=== PATIENT | female | born 1950 | race Caucasian/White ===

== ENCOUNTER → 2017-12-12 | Outpatient (CLI) | payer MEDICARE ==
[~2017-12-12] MED LIST: IOHEXOL 350 MG/ML 150 ML (OMNIPAQUE 350) VIAL IV ONE; NS 250 ML (IVPB) BAG IV ONE; RT-ALBUTEROL SULF 2.5 MG/3 ML PRE-MIX VIAL INH ONE
--- NOTE | 2017-12-12 16:29 | Diagnostic Imaging Report ---
PROCEDURE: CT angiography of the chest with contrast. TECHNIQUE: Multiple contiguous axial images were obtained through the chest after uneventful bolus administration of intravenous contrast. 2D reconstructed CTA MIP acquisitions were also performed. INDICATION: COPD, seasonal allergies, tobaccoism, enzyme deficiency. FINDINGS: There is no intraluminal pulmonary arterial filling defect. There is no PE. The thoracic aorta is patent and nonaneurysmal. There is centrilobular emphysema with heterogeneous air trapping. No bronchiectasis. Few lower lobe air cysts are present thin-walled. No alveolar consolidation. No mass or infiltrate. No effusion or pneumothorax. No lymphadenopathy. There is partial visualization of a patent aortic stent graft device with moderate fatty liver. Pancreas partially visualized nonacute where seen. IMPRESSION: Centrilobular emphysema. Negative for PE or acute aortic pathology. Fatty liver. Dictated by: Dictated on workstation # [id number]
== END ==
LOC: RT 13:39
PROVIDERS: ATTEND Nurse Practitioner Family
DX: J43.2 Centrilobular emphysema (principal); R06.00 Dyspnea, unspecified; E75.6 Lipid storage disorder, unspecified; Z72.0 Tobacco use
CPT/HCPCS: 71275; 94060; 94726; 94729

== ENCOUNTER 2018-11-29 10:55 | Outpatient (RCR) | payer MEDICARE ==
[2018-11-29] MEDS ORDERED: CATHETER FLUSH 10 ML SYR IV PRN (11:30)
[2018-11-29] MEDS ORDERED: REGADENOSON 0.4 MG/5 ML SYR (LEXISCAN) IV ONE ×2 (12:30→12:46)
[2018-11-29 13:18] VITALS: BP 198/109
[2018-11-29 13:20] VITALS: BP 174/96
[2018-12-08] MEDS ORDERED: [UNRECOGNIZED DRUG - OTHER] PO (08:32)
[2018-12-08] MEDS ORDERED: CRAN1CAP9 PO (08:32)
[2018-12-08] MEDS ORDERED: LACT1TAB25 PO (08:32)
[2018-12-08] MEDS ORDERED: FAMO20TA45 PO (08:32)
[2018-12-08] MEDS ORDERED: FLUT12AE4 IH (08:32)
[2018-12-08] MEDS ORDERED: FLUT9.9S NS (08:32)
[2018-12-08] MEDS ORDERED: MULT-1021 PO (08:32)
[2018-12-08] MEDS ORDERED: MAG PO (08:32)
[2018-12-08] MEDS ORDERED: GARL10002 PO (08:32)
[2018-12-08] MEDS ORDERED: LISI-552 PO (08:32)
[2018-12-08] MEDS ORDERED: IBUP-2055 PO (08:32)
[2018-12-08] MEDS ORDERED: CALCIUM PO (08:32)
[2018-12-08] MEDS ORDERED: GUAI1TAB22 PO (08:32)
[2018-12-08] MEDS ORDERED: ZINC PO (08:32)
[2018-12-08] MEDS ORDERED: CHOL10007 PO (08:32)
[2018-12-08] MEDS ORDERED: MONT10TA24 PO (08:32)
[2018-12-08] MEDS ORDERED: LORA10TA7 PO (08:32)
[2018-12-08] MEDS ORDERED: RT-ALBUINH INH (08:32)
[2018-12-08] MEDS ORDERED: INSU100V6 SQ (08:37)
[2018-12-10] MEDS ORDERED: METO-387 PO (10:19)
[2018-12-10] MEDS ORDERED: CEPH250C PO (10:19)
== END 2019-02-27 | disposition home or self-care (01) ==
LOC: CARD 10:55
PROVIDERS: ATTEND Internal Medicine Cardiovascular Disease
DX: I49.5 Sick sinus syndrome (principal); I71.4 Abdominal aortic aneurysm, without rupture; I10 Essential (primary) hypertension; F17.210 Nicotine dependence, cigarettes, uncomplicated; R06.02 Shortness of breath
CPT/HCPCS: 78452; 93017; 93225; 93226; 93306

== ENCOUNTER 2018-12-08 07:35 | Day surgery (SDC) | payer MEDICARE ==
[2018-12-08] VITALS (13 sets, daily range): BP systolic 121–187; BP diastolic 80–119
[~2018-12-08] VITALS: Ht 170.2 cm; Wt 77.3 kg
[2018-12-08] MEDS ORDERED: NS IV 1000 ML 1,000 ML IV ONE (07:42)
[2018-12-08] MEDS ORDERED: BACITRACIN INJECTION 50,000 UNIT, SODIUM CHLORIDE 0.9% IRRIGATIO 500 ML IR ONE ×2 (07:45)
[2018-12-08] MEDS ORDERED: NS IV 1000 ML 1,000 ML ONE ×2 (07:47→12:58)
[2018-12-08] MEDS ORDERED: HEParin (CATH LAB) 1,000 ML IV ONE (07:47)
[2018-12-08] MEDS ORDERED: ceFAZolin INJECTION 1,000 MG ONE (07:51)
[2018-12-08 08:09] LABS: HEMOGLOBIN 15.9 G/DL (11.5-16.0); MEAN PLATELET VOLUME 9.7 FL (7.4-10.4); RED CELL DISTRIBUTION WIDTH 13.1 % (10.0-14.5)
[2018-12-08 08:10] LABS: BILIRUBIN,URINE NEGATIVE (NEGATIVE); CLARITY,URINE CLEAR; COLOR,URINE YELLOW; GLUCOSE, URINE (UA) 2+ (NEGATIVE); KETONES,URINE NEGATIVE (NEGATIVE); LEUKOCYTE ESTERASE ,URINE 3+ (NEGATIVE); NITRITE,URINE NEGATIVE (NEGATIVE); PH,URINE 6 (5-9); PROTEIN,URINE 2+ (NEGATIVE); UROBILINOGEN,URINE NORMAL (NORMAL)
[2018-12-08 08:17] LABS: BACTERIA,URINE MODERATE /HPF; SQUAMOUS EPITHELIAL CELL,UR 25-50 /HPF; WBC,URINE 50-100 /HPF
[2018-12-08 08:20] LABS: PROTHROMBIN TIME PATIENT 13.2 SEC (12.2-14.7)
[2018-12-08] MEDS ORDERED: NS (IVPB) 50 ML ONE (08:24)
[2018-12-08 08:28] LABS: ALBUMIN 4.2 GM/DL (3.2-4.5); BILIRUBIN,TOTAL 0.5 MG/DL (0.1-1.0); CREATININE SERUM 1.03 MG/DL (0.60-1.30); TOTAL PROTEIN 7.9 GM/DL (6.4-8.2)
[2018-12-08] MEDS ORDERED: MEPIVACAINE (CARBOCAINE) 2% 50 ML VIAL IJ ONE (08:30)
[2018-12-08] MEDS ORDERED: CALCIUM PO (08:32)
[2018-12-08] MEDS ORDERED: MULT-1021 PO (08:32)
[2018-12-08] MEDS ORDERED: CRAN1CAP9 PO (08:32)
[2018-12-08] MEDS ORDERED: MONT10TA24 PO (08:32)
[2018-12-08] MEDS ORDERED: RT-ALBUINH INH (08:32)
[2018-12-08] MEDS ORDERED: GARL10002 PO (08:32)
[2018-12-08] MEDS ORDERED: ZINC PO (08:32)
[2018-12-08] MEDS ORDERED: CHOL10007 PO (08:32)
[2018-12-08] MEDS ORDERED: FAMO20TA45 PO (08:32)
[2018-12-08] MEDS ORDERED: LACT1TAB25 PO (08:32)
[2018-12-08] MEDS ORDERED: LORA10TA7 PO (08:32)
[2018-12-08] MEDS ORDERED: FLUT9.9S NS (08:32)
[2018-12-08] MEDS ORDERED: MAG PO (08:32)
[2018-12-08] MEDS ORDERED: LISI-552 PO (08:32)
[2018-12-08] MEDS ORDERED: IBUP-2055 PO (08:32)
[2018-12-08] MEDS ORDERED: [UNRECOGNIZED DRUG - OTHER] PO (08:32)
[2018-12-08] MEDS ORDERED: FLUT12AE4 IH (08:32)
[2018-12-08] MEDS ORDERED: GUAI1TAB22 PO (08:32)
[2018-12-08] MEDS ORDERED: INSU100V6 SQ (08:37)
--- NOTE | 2018-12-08 08:52 | Diagnostic Imaging Report ---
INDICATION: Cardiac disease, pacemaker evaluation FINDINGS: The heart size is within normal limits. There is no vascular congestion. Benign calcified granulomatous residua stable from exam of 2016. No overt failure pattern. No pneumonia, effusion or pneumothorax. Lungs are hyperexpanded consistent with air trapping as a stable chronic finding. IMPRESSION: Stable chronic findings Dictated by: Dictated on workstation # [id number]
[2018-12-08] MEDS ORDERED: methylPREDNISolone 125 MG (Solu-MEDROL) VIAL ONE (08:57)
[2018-12-08] MEDS ORDERED: diphenhydrAMINE 50 MG/ML INJ (BENADRYL) ONE (08:57)
--- NOTE | 2018-12-08 08:59 | NUR ---
SPOKE WITH PT (SHE BROUGHT IN HER HOME MEDS) WELL CALLING [facility] TO COMPLETE THE MED REC. PT WAS ABLE TO VERIFY ALL THERE MEDS AND HOW SHE IS TAKING THEM. THE FOLLOWING DATES WERE GIVEN TO ME FROM [facility] DRU11-23-2018 LANTUS 11-28-2018 LISINOPRIL #30/30DS 12-05-2018 MONTELUKAST #30/30DS Addendum: 12/08/18 at 0949 by ROME ESPARZA campus safety officer SHE GETS ADVAIR A SAMPLE FROM DR. SALGADO OFFICE OTC MEDS: CALCIUM/MAG,ZINC: 3 DAILY VITAMIN D: 2 DAILY CRANBERRY: 1 BID FAMOTIDINE: 1 BID PRN FLONASE NASAL SPRAY: UD GARLIC: 1 BID MUCUS RELIEF DM: 1 TID IBUPROFEN 200M TABS TID PRN PROBIOTIC: 1 HS LORATADINE: 1 DAILY MULTIVITAMIN: 1 DAILY
--- NOTE | 2018-12-08 09:10 | Cardiac Procedure Note-CS/ASA ---
Pre-Procedure Note Pre-Op Procedure Note H&P Reviewed The H&P was reviewed, patient examined and no changes noted. Date H&P Reviewed: Dec 08, 2018 Time H&P Reviewed: 09:10 Conscious Sedation Pre-Proced Time 09:10 ASA Score 3 For ASA 3 and 4: Consider anesthesia and medical clearance. Also, for patients with a history of failed moderate sedation consider anesthesia. Airway Lungs Heart ASA score ASA 1: a normal healthy patient ASA 2: a patient with a mild systemic disease (mid diabetes, controlled hypertension, obesity x ASA 3: a patient with a severe systemic disease that limits activity (angina, COPD, prior Myocardial infarction) ASA 4: a patient with an incapacitating disease that is a constant threat to life (CHF, renal failure) ASA 5: a moribund patient not expected to survive 24 hrs. (ruptured aneurysm) ASA 6: a declared brain- patient whose organs are being harvested. For emergent operations, add the letter E after the classification Mallampati Classification Grade 3 Sedation Plan Analgesia, Amnesia, Plan communicated to team members, Discussed options with patient/fam, Discussed risks with patient/fam The patient is an appropriate candidate to undergo the planned procedure, sedation, and anesthesia. The patient immediately re-assessed prior to indication. LIBRA ROONEY MD Dec 08, 2018 09:10
[2018-12-08] MEDS ORDERED: MIDAZOLAM 5 MG/5 ML (VERSED) VIAL ONE ×2 (09:20→12:08)
[2018-12-08] MEDS ORDERED: fentaNYL INJECTION 100 MCG/2 ML AMP ONE ×5 (09:20→16:28)
[2018-12-08] MEDS ORDERED: MIDAZOLAM 2 MG/2 ML (VERSED) VIAL ONE (11:22)
[2018-12-08] MEDS ORDERED: NEO/POLY/BAC (NEOSPORIN) OINT 15 GM TUBE ONE (12:26)
[2018-12-08] MEDS ORDERED: NS IV 1000 ML 1,000 ML IV SCH (12:32)
--- NOTE | 2018-12-08 12:43 | Permanent Pacemaker Implant ---
Dual Chamber Pacemaker Implant PROCEDURE PHYSICIAN: Libra Dong DUAL CHAMBER PACEMAKER IMPLANTATION: DATE OF PROCEDURE: 12/08/18 ATTENDING PHYSICIAN: Dr. Libra Dong INDICATION: Sinus node dysfunction PREOPERATIVE DIAGNOSIS: sinus node dysfunction POSTOPERATIVE DIAGNOSIS: sinus node dysfunction HISTORY: 68 years old lady with sinus node dysfunction, had a Holter monitor showing severe bradycardia with multiple pauses, has been having dizziness, patient has underlying thoracic aortic aneurysm requiring to be on beta blockers. Dual-chamber permanent pacemaker was recommended. PROCEDURE PERFORMED: 1. Dual-chamber permanent pacemaker implantation. 2. Fluoroscopy. 3. Central venous access. ANESTHESIA: Local anesthesia, conscious sedation. COMPLICATIONS: None. ESTIMATED BLOOD LOSS:20 mL. SPECIMENS: None. ORAL ANTICOAGULATION: None. FLUOROSCOPY TIME: FLUOROSCOPY DOSE: CONTRAST DOSE: PROCEDURE DETAILS: The patient is a 68 female and after all of the patients questions were answered, the patient was brought to the EP Lab. The patient's left chest was prepped and draped in sterile fashion. A 2 inch horizontal incision was made 1 cm below the clavicle and dissection carried down to the pectoralis fascia. Using the modified Seldinger technique and under fluoroscopy guidance, the anterior aspect of the left axillary vein was accessed 2 times. The J wires were secured to the drapes with a mosquito clamp. A 7-Telugu sheath was introduced over one of the J-wires. The RV lead was then inserted. The RV lead was directed across the tricuspid valve to the apical septal portion of the right ventricle. The position was checked in JOAQUÍN and LARRY views. The screw was deployed and the lead connected to the labview programmer. Close sensing and pacing thresholds were obtained. Diaphragmatic pacing was ruled out. The lead was secured with 2-0 silk ties to the underlying muscle and fascia. Next, a 7-Telugu sheath was introduced through the remaining J-wire. An atrial lead was then introduced and guided to the level of the right appendage, multiple attempts with multiple different position has failed to achieve adequate sensing and capture, Dr. Gallardo was consulted and he assisted in positioning the atrial lead. The screw was deployed and the lead was connected to the interrogator. Good sensing and pacing thresholds were obtained. Diaphragmatic pacing was ruled out. The leads were secured with 2-0 silk ties to the underlying muscle and fascia. The leads were connected to the device in a hermetic fashion. The device and leads were placed in the pocket. Aggressive irrigation with saline solution was done. The device was secured to the underlying muscle and fascia with a 2-0 silk tie. interrogation of the device revealed good integrity of all the leads and good connections. The wound was then closed using 2 layers. The first layer was interrupted 2-0 absorbable Vicryl suture. The last layer was a single subcuticular layer with 4- 0 Vicryl suture. Half inch Steri-Strips and a small dressing were then applied to the wound. The patient tolerated the procedure well and was returned to the recovery room in stable condition with stable vital signs. DEVICE INFORMATION: MANOJ DOWNING MRI # [id number] RA LEAD: [id number] RV LEAD: [id number] PER-OPERATIVE DEVICE INTERROGATION: Good sensing and capture IMMEDIATE POSTOPERATIVE DEVICE INTERROGATION: atrial lead, capture at 0.4 ms with 1 V, P-wave 2.6, impedance 556. Device interrogation P wave 2.1 with threshold at 0.75 V was 0.5 ms. Ventricular lead capture is 0.4 with 0.625 V with V wave 20.1 impedance 589. Device interrogation with ventricular lead R-wa ve 16.1, threshold 0.75 at 0.5 PLAN: The patient transferred to the ICU. We will continue with two more doses of IV antibiotics. We will check a chest x-ray and interrogate the device in the morning. The patient will continue on oral antibiotics for 5 days. CONCLUSION: 1. Complex implantation of dual-chamber pacemaker good sensing and capture activity FINAL DIAGNOSIS: Sinus node dysfunction Bradycardia Thoracic aortic aneurysm Hypertension LIBRA DONG MD Dec 08, 2018 12:43
[2018-12-08] MEDS ORDERED: FAMOTIDINE 20 MG PO PRN (12:45)
[2018-12-08] MEDS ORDERED: PATIENT MAY USE OWN MEDS, ALL PO SCH (12:45)
[2018-12-08] MEDS ORDERED: RT-ALBUTEROL SULF 2.5 MG/3 ML PRE-MIX VIAL INH PRN (12:45)
--- NOTE | 2018-12-08 13:11 | NUR ---
PT ARRIVES TO ROOM FROM XRAY POST PACEMAKER PLACEMENT. PT STATES SHE IS SHORT OF BREATH. MONITORS WHERE PLACED ON PT WITH SPO2 IN MID 80'S OXYGEN PLACE ON PT AT 5 LPM NC. PT STILL C/O SHORTNESS OF AIR AND IS USING ACCESSORY MUSCLES TO BREATH. DR ROONEY NOTIFIED OF PT'S S/S AND IS ON HIS WAY TO SEE PT. STAT CHEST XRAY REQUESTED AND PT MADE COMFORTABLE POSSIBLE. DR ROONEY AT BEDSIDE AND ORDERED 40 OF IV LASIX WHICH IS PULLED AND GIVEN AT THIS TIME. XRAY TO ROOM FOR REPEAT CHEST. PNEUMO NOTED ON XRAY BY DR ROONEY AND DR ROWE CONSULTED TO PLACE CHEST TUBE. PT MOVED TO ROOM 9 FOR CLOSER MONITOR AND CHEST TUBE PLACED AND CONFIRMED. 150 MCG OF FENTANYL GIVEN FOR PAIN CONTROL DURING PROCEDURE PER DR ROWE. PT RESTING WITH EYES CLOSED POST TUBE PLACEMENT. WILL CONTINUE TO MONITOR.
[2018-12-08] MEDS ORDERED: FUROSEMIDE 40 MG/4 ML INJ (LASIX) ONE (13:40)
[2018-12-08] MEDS ORDERED: FUROSEMIDE 40 MG/4 ML INJ (LASIX) IVP ONE (13:45)
--- NOTE | 2018-12-08 13:58 | Diagnostic Imaging Report ---
PATIENT HISTORY: SOB. Recent pacemaker placement. TECHNIQUE: Single view of the chest. COMPARISON: Chest radiograph performed at 01:01 p.m. on 12/08/2018. FINDINGS: There has been interval development of a left-sided pneumothorax, measuring approximately 3 cm from the pleura at the left lung base. No evidence of mediastinal shift at this time. There is stable configuration of the left pectoral dual-chamber pacemaker. The lungs are clear. The heart size is unremarkable. IMPRESSION: 1. Interval development of a left-sided pneumothorax. Findings were discussed with JUAN Kulkarni at 01:52 p.m. on 12/08/2018. Dictated by: Dictated on workstation # [id number]
[2018-12-08] MEDS ORDERED: MEPIVACAINE (CARBOCAINE) 2% 20 ML VIAL INJ NR (14:00)
[2018-12-08] MEDS ORDERED: FAMOTIDINE 20 MG (PEPCID) TABLET PO PRN (14:00)
--- NOTE | 2018-12-08 15:29 | Diagnostic Imaging Report ---
CHEST 1 VIEW, AP/PA ONLY. INDICATION: Chest tube placement. COMPARISON: Earlier same day at 01:34 p.m. FINDINGS: There remains a [id number]-fh-[id number] left pneumothorax, with a prominent basilar component. The small-bore left chest tube does not appear to have tip within the pleural space. Slight rightward tracheal position could be due to patient rotation. Stable cardiomediastinal silhouette. IMPRESSION: 1. Persistent [id number] left-sided pneumothorax with the left-sided chest tube tip not within the pleural cavity. Repositioning is recommended. Dictated by: Dictated on workstation # [id number]
[2018-12-08] MEDS: ceFAZolin INJECTION 1,000 MG in WATER (STERILE) FOR INJECTION 10 ML IV SCH ×2 (16:01→20:47)
--- NOTE | 2018-12-08 16:24 | Consultation - Surgery ---
[facility] 12/08/18 1624: History of Present Illness History of Present Illness Patient Consulted On(miguel/time) 12/08/18 16:19 Date Seen by Provider: Dec 08, 2018 Time Seen by Provider: 14:00 History of Present Illness Consult requested by Dr. Dong for left pneumothorax. Patient is 68 yo female that presented for pacemaker placement. Patient was having some shortness of breath and left side discomfort in chest. Nothing making it better nothing making it worse. Chest x-ray showed left sided pneumoth orax. Allergies and Home Medications Allergies Coded Allergies: No Allergy Information Available (Unverified , 12/12/17) Home Medications Albuterol Sulfate 1 Puff Puff, 2 PUFF INH Q4H PRN for SHORTNESS OF BREATH, (Reported) 1 PUFF = 90 MCG Cholecalciferol (Vitamin D3) 1,000 Unit Capsule, 2,000 UNIT PO HS, (Reported) Cranberry Conc/Ascorbic Acid 1 Each Capsule, 1 EACH PO BID, (Reported) Famotidine 20 Mg Tablet, 20 MG PO BID PRN for HEARTBURN, (Reported) Fluticasone Propionate 9.9 Ml [place].susp, 2 SPRAY NS DAILY, (Reported) 2 SPRAYS PER NOSTRIL DAILY X 2 DAYS THEN 1 SPRAY DAILY Fluticasone/Salmeterol 12 Gm Hfa.aer.ad, 2 PUFF IH BID, (Reported) Garlic 1,000 Mg Capsule, 1,000 MG PO BID, (Reported) Guaifenesin/Dextromethorphan 1 Each Tablet, 1 EACH PO TID PRN for CONGESTION, (Reported) Ibuprofen 200 Mg Tablet, 600 MG PO TID PRN for PAIN-MILD, (Reported) Insulin Glargine,Hum.rec.anlog 100 Unit/1 Ml Vial, 18 UNIT SQ HS, (Reported) INJECTING 18 UNITS. BUT PT IS TO INCREASE DOSE TO 21 UNITS IF BS IS STILL NOT STABLE Lactobacillus Acidophilus 1 Each Tablet, 1 EACH PO HS, (Reported) Lisinopril 20 Mg Tablet, 20 MG PO DAILY, (Reported) Loratadine 10 Mg Tablet, 10 MG PO DAILY, (Reported) Montelukast Sodium 10 Mg Tablet, 10 MG PO DAILY, (Reported) Multivits-Min/Iron/FA/Lutein 1 Each Tablet, 1 EACH PO DAILY, (Reported) [Calcium+Mag+Zinc+D] , 3 TAB PO HS, (Reported) Past Meeazrs-Jvvrmv-Ejbchu Hx Patient Social History Alcohol Use: Occasionally Uses Recreational Drug Use: No Smoking Status: Current Everyday Smoker Type Used: Hookah Recent Foreign Travel: No Contact w/Someone Who Travel: No Surgeries Surgeries: Tonsillectomy, Tubal Ligation Respiratory History of Respiratory Disorde: Yes Respiratory Disorders: COPD Cardiovascular History of Cardiac Disorders: Yes Cardiac Disorders: Irregular Heartbeat Neurological History of Neurological Disord: No Genitourinary History of Genitourinary Disor: No Gastrointestinal History of Gastrointestinal Di: Yes Gastrointestinal Disorders: Gastroesophageal Reflux Cancer History of Cancer: No Review of Systems-General Constitutional: No chills, No dizziness, No fever, No weakness Respiratory: No cough; dyspnea on exertion, short of breath, other (Left sided chest pain) Cardiovascular: No palpitations Musculoskeletal: No back pain; joint pain (Shoulder) Psychiatric/Neurological: Denies Headache, Denies Weakness Physical Exam-General Problems Physical Exam Vital Signs Vital Signs - First Documented 12/08/18 08:01 Temp 36.7 Pulse 98 Resp 14 B/P (MAP) 179/119 (139) Pulse Ox 97 O2 Delivery Room Air Capillary Refill : General Appearance: mild distress Respiratory: other (Increased respiratory effort) Cardiovascular: regular rate, rhythm, no JVD Data Review Labs Laboratory Tests 12/08/18 07:58: White Blood Count 8.0, Red Blood Count 5.22, Hemoglobin 15.9, Hematocrit 47, Mean Corpuscular Volume 91, Mean Corpuscular Hemoglobin 31, Mean Corpuscular Hemoglobin Concent 34, Red Cell Distribution Width 13.1, Platelet Count 266, Mean Platelet Volume 9.7, Prothrombin Time 13.2, INR Comment 1.0, Activated Partial Thromboplast Time 31, Urine Color YELLOW, Urine Clarity CLEAR, Urine pH 6, Urine Specific [place] 1.025H, Urine Protein 2+H, Urine Glucose (UA) 2+H, Urine Ketones NEGATIVE, Urine Nitrite NEGATIVE, Urine Bilirubin NEGATIVE, Urine Urobilinogen NORMAL, Urine Leukocyte Esterase 3+H, Urine RBC (Auto) 1+H, Urine RBC 2-5H, Urine WBC 50-100H, Urine Squamous Epithelial Cells 25-50H, Urine Crystals NONE, Urine Bacteria MODERATEH, Urine Casts NONE, Urine Mucus NEGATIVE, Urine Culture Indicated YES, Sodium Level 140, Potassium Level 4.0, Chloride Level 103, Carbon Dioxide Level 23, Anion Gap 14, Blood Urea Nitrogen 11, Creatinine 1.03, Estimat Glomerular Filtration Rate 53, BUN/Creatinine Ratio 11, Glucose Level 224H, Calcium Level 10.0, Corrected Calcium 9.8, Total Bilirubin 0.5, Aspartate Amino Transf (AST/SGOT) 63H, Alanine Aminotransferase (ALT/SGPT) 106H, Alkaline Phosphatase 89, Total Protein 7.9, Albumin 4.2 Radiology Chest X-ray showed a pneumothorax of the left side on the lower lobe. Procedures Thoracostomy tube placement. Assessment/Plan Assessment/Plan Admission Diagonsis Pacemaker placement Assessment/Plan Left sided pneumothorax Shortness of breath Sinus node dysfunction Bradycardia Thoracostomy tube placement followed with chest x-ray. Clinical Quality Measures DVT/VTE Risk/Contraindication: Risk Factor Score Per Nursin RFS Level Per Nursing on Admit: 4+=Very High CHAVEZ SANCHEZ DO 12/08/18 2012: History of Present Illness History of Present Illness History of Present Illness 68 year old female for pacemaker today. Had shortness of breath following procedure and some left sided chest pain. Laying slightly on right side make pain better. Nothing really making it worse. Moderated discomfort. Following procedure patient had a chest x ray demonstrating the left sided pneumothorax. I was consulted to help with management. Patient also notes hematoma left chest where pacemaker pocket present. Allergies and Home Medications Allergies Coded Allergies: No Allergy Information Available (Unverified , 12/12/17) Home Medications Albuterol Sulfate 1 Puff Puff, 2 PUFF INH Q4H PRN for SHORTNESS OF BREATH, (Reported) 1 PUFF = 90 MCG Cholecalciferol (Vitamin D3) 1,000 Unit Capsule, 2,000 UNIT PO HS, (Reported) Cranberry Conc/Ascorbic Acid 1 Each Capsule, 1 EACH PO BID, (Reported) Famotidine 20 Mg Tablet, 20 MG PO BID PRN for HEARTBURN, (Reported) Fluticasone Propionate 9.9 Ml [place].susp, 2 SPRAY NS DAILY, (Reported) 2 SPRAYS PER NOSTRIL DAILY X 2 DAYS THEN 1 SPRAY DAILY Fluticasone/Salmeterol 12 Gm Hfa.aer.ad, 2 PUFF IH BID, (Reported) Garlic 1,000 Mg Capsule, 1,000 MG PO BID, (Reported) Guaifenesin/Dextromethorphan 1 Each Tablet, 1 EACH PO TID PRN for CONGESTION, (Reported) Ibuprofen 200 Mg Tablet, 600 MG PO TID PRN for PAIN-MILD, (Reported) Insulin Glargine,Hum.rec.anlog 100 Unit/1 Ml Vial, 18 UNIT SQ HS, (Reported) INJECTING 18 UNITS. BUT PT IS TO INCREASE DOSE TO 21 UNITS IF BS IS STILL NOT STABLE Lactobacillus Acidophilus 1 Each Tablet, 1 EACH PO HS, (Reported) Lisinopril 20 Mg Tablet, 20 MG PO DAILY, (Reported) Loratadine 10 Mg Tablet, 10 MG PO DAILY, (Reported) Montelukast Sodium 10 Mg Tablet, 10 MG PO DAILY, (Reported) Multivits-Min/Iron/FA/Lutein 1 Each Tablet, 1 EACH PO DAILY, (Reported) [Calcium+Mag+Zinc+D] , 3 TAB PO HS, (Reported) Patient Home Medication List Home Medication List Reviewed: Yes Past Zpmixru-Ngvnxz-Wtminq Hx Patient Social History Type Used: Localmind Surgeries Surgeries: Tonsillectomy, Tubal Ligation Respiratory Respiratory Disorders: COPD Cardiovascular Cardiac Disorders: Irregular Heartbeat Gastrointestinal Gastrointestinal Disorders: Gastroesophageal Reflux Family Medical History Significant Family History: No Pertinent Family Hx Review of Systems-General Constitutional: no symptoms reported EENTM: no symptoms reported Respiratory: see HPI Cardiovascular: see HPI Gastrointestinal: no symptoms reported Genitourinary: no symptoms reported Musculoskeletal: no symptoms reported Skin: no symptoms reported Psychiatric/Neurological: No Symptoms Reported Physical Exam-General Problems Physical Exam General Appearance: mild distress HEENT: PERRL/EOMI Neck: non-tender, normal inspection Respiratory: other (Increased respiratory effort, hematoma left upper chest wall) Cardiovascular: regular rate, rhythm Gastrointestinal: non tender Rectal: deferred Back: normal inspection Extremities: non-tender Neurologic/Psychiatric: alert, normal mood/affect, oriented x 3 Skin: warm/dry Lymphatic: no adenopathy Assessment/Plan Assessment/Plan Assessment/Plan left sided pneumothorax shortness of breath s/p pacemaker placement Chest x ray reviewed and left side pneumothorax present discussed risks and benefits of thoracostomy tube placement patient and her understand and wish to proceed with placement to be placed will place thoravent and obtain chest x ray and will follow Supervisory-Addendum Brief Verification & Attestation Participated in pt care: history, MDM, physical Personally performed: exam, history, MDM, supervision of care Care discussed with: Medical Student Procedures: n/a Results interpretation: Verified all documentation Verification and Attestation of Medical Student E/M Service A medical student performed and documented this service in my presence. I reviewed and verified all information documented by the medical student and made modifications to such information, when appropriate. I personally performed the physical exam and medical decision making. Chavez Sanchez, Dec 08, 2018,20:12 [facility] Dec 08, 2018 16:24 CHAVEZ SANCHEZ DO Dec 08, 2018 20:12
[2018-12-08] MEDS: fentaNYL INJECTION 100 MCG/2 ML AMP IVP PRN ×2 (16:28→20:53)
--- NOTE | 2018-12-08 16:28 | Diagnostic Imaging Report ---
CHEST 1 VIEW, AP/PA ONLY INDICATION: Pacemaker placement. COMPARISON: Earlier same day at 08:11 a.m. FINDINGS: Left pectoral transvenous pacemaker has been placed. The leads appear intact and electrodes overlie the right atrium and right ventricle. Lungs are clear. No pleural effusion or pneumothorax. No abnormal widening of the cardiac silhouette. IMPRESSION: 1. No pneumothorax status post left pectoral transvenous pacemaker placement. Dictated by: Dictated on workstation # [id number]
--- NOTE | 2018-12-08 16:35 | Diagnostic Imaging Report ---
CHEST 1 VIEW, AP/PA ONLY INDICATION: Pneumothorax. COMPARISON: Earlier same day at 2:57 p.m. FINDINGS: The chest tube now has tip within the pleural space. The left-sided pneumothorax has decreased in size but persists with approximately 2.6 cm of left basilar separation. Stable cardiomediastinal silhouette. Stable left pectoral transvenous pacemaker. IMPRESSION: 1. The left-sided pneumothorax has slightly decreased in size with repositioning of the left-sided chest tube. Dictated by: Dictated on workstation # [id number]
[2018-12-08] MEDS ORDERED: KETOROLAC 30 MG/ML VIAL ONE (16:46)
[2018-12-08] MEDS: KETOROLAC 30 MG/ML VIAL IVP PRN (16:49)
--- NOTE | 2018-12-08 17:30 | NUR ---
notified dr ventura of results. pt has ancef ordered
[2018-12-08] MEDS: RT-ADVAIR HFA 115/21 MCG PER PUFF IH SCH (19:18)
[2018-12-08] MEDS ORDERED: NON-FORMULARY MEDICATION 1 EA EA (Insulin Glargine,Hum.rec.anlog (Lantus) 18 UNIT) SQ SCH (21:00)
--- NOTE | 2018-12-08 21:13 | OPERATIVE REPORT ---
DATE OF SERVICE: 12/08/2018 PREOPERATIVE DIAGNOSIS: Left pneumothorax. POSTOPERATIVE DIAGNOSIS: Left pneumothorax. PROCEDURE PERFORMED: Left thoracostomy tube placement using Thora-Vent. SURGEON: Abdirahman Sanchez DO ANESTHESIA: Local. ESTIMATED BLOOD LOSS: Minimal. COMPLICATIONS: None. INDICATIONS: The patient is a 68-year-old female undergoing pacemaker placement, found to have a left-sided pneumothorax, having shortness of breath. She was discussed risks and benefits of having a thoracostomy tube placement. She understands and wishes to proceed. Consent was signed in the chart. DESCRIPTION OF PROCEDURE: The patient was prepped and draped in sterile fashion, left anterior axillary line at the nipple line. Local anesthetic was infiltrated and the needle was inserted towards the chest until air was able to be withdrawn and local anesthetic was infiltrated through the chest wall. An 11-blade scalpel was used to make a skin incision and catheter and trocar were advanced through the chest wall until the pleural cavity was entered and the catheter was then advanced. The Thora-Vent was then secured in the usual fashion. Prior to adhering the valve was functioning after securing the Thora-Vent, the valve was no longer functioning. Chest x-ray was performed demonstrating the thoracostomy tube in the subcutaneous tissue and not within the chest cavity. This was removed and a new Thora-Vent was then inserted through the incision into the chest cavity and secured in the usual fashion. The valve was then functioning without difficulty, chest x-ray confirming the thoracostomy tube within the chest cavity. The patient tolerated procedure well without any complications. Job ID: [id number] DocumentID: [id number] Dictated Date: 12/08/2018 16:58:22 Envelope Maker Date: 12/08/2018 21:12:25 Dictated By: ABDIRAHMAN SANCHEZ DO
[2018-12-09] VITALS (11 sets, daily range): BP systolic 122–161; BP diastolic 55–99
[2018-12-09] MEDS: KETOROLAC 30 MG/ML VIAL IVP PRN ×3 (02:22→17:48)
[2018-12-09 03:31] LABS: BASOPHILS % (AUTO) 0 % (0-10); EOSINOPHILS % (AUTO) 0 % (0-10); HEMATOCRIT 39 % (35-52); HEMOGLOBIN 13.1 G/DL (11.5-16.0); LYMPHOCYTES # (AUTO) 1.6 X 10^3 (1.0-4.0); LYMPHOCYTES % (AUTO) 15 % (12-44); MEAN CORPUSCULAR HEMOGLOBIN 31 PG (25-34); MEAN CORPUSCULAR HGB CONC 33 G/DL (32-36); MEAN CORPUSCULAR VOLUME 92 FL (80-99); MEAN PLATELET VOLUME 10.1 FL (7.4-10.4); MONOCYTES # (AUTO) 1.4 X 10^3 (0.0-1.0); MONOCYTES % (AUTO) 13 % (0-12); NEUTROPHILS # (AUTO) 7.7 X 10^3 (1.8-7.8); NEUTROPHILS % (AUTO) 72 % (42-75); PLATELET COUNT 190 10^3/uL (130-400); RED CELL DISTRIBUTION WIDTH 12.3 % (10.0-14.5); WHITE BLOOD COUNT 10.7 10^3/uL (4.3-11.0)
[2018-12-09 03:48] LABS: BUN/CREATININE RATIO 25; CALCIUM 8.7 MG/DL (8.5-10.1); CARBON DIOXIDE 25 MMOL/L (21-32); CHLORIDE 101 MMOL/L (98-107); CREATININE SERUM 0.91 MG/DL (0.60-1.30); GFR ESTIMATED > 60; GLUCOSE 292 MG/DL (70-105); MAGNESIUM 1.8 MG/DL (1.6-2.4); PHOSPHORUS 3.2 MG/DL (2.3-4.7); POTASSIUM 4.8 MMOL/L (3.6-5.0); SODIUM 133 MMOL/L (135-145)
[2018-12-09] MEDS: RT-ADVAIR HFA 115/21 MCG PER PUFF IH SCH ×2 (06:33→19:07)
[2018-12-09] MEDS: ceFAZolin INJECTION 1,000 MG in WATER (STERILE) FOR INJECTION 10 ML IV SCH (07:24)
[2018-12-09] MEDS: MULTIVIT W/MINERALS TAB (THERAGRAN M) PO SCH (07:24)
--- NOTE | 2018-12-09 07:31 | Diagnostic Imaging Report ---
INDICATION: Dyspnea, follow-up chest tube. COMPARISON: 12/08/2018. DISCUSSION: Single portable upright view of the chest was obtained. Small-bore left chest tube is again projected over the left lower lung. No pneumothorax. Probable atelectasis noted within the left lung base. There has been good reexpansion of the left lung. Normal heart size. The right lung is well aerated. Elevated right hemidiaphragm. Left-sided pacemaker is stable. IMPRESSION: 1. Reexpansion of the left lung with no residual pneumothorax identified. Dictated by: Dictated on workstation # [id number]
--- NOTE | 2018-12-09 07:49 | Cardiology History & Physical ---
HPI-Cardiology Cardiology Consultation Date of Consultation 12/09/18 Date of Admission Time Seen by Provider: 07:47 Indication: Sinus node dysfunction HPI 68 years old lady with history of sinus node dysfunction, having episodes of palpitation, had a Holter monitor which showed multiple episodes of bradycardia, having episodes of dizziness and lightheadedness. No full syncope was reported, she was scheduled as an outpatient for dual-chamber pacemaker implantation, procedure was complex and complicated by pneumothorax. Had chest tube, recovering well. PMH-Cardiology Respiratory Yes Cardiovascular Yes Neurological No Genitourinary No Gastrointestinal Yes Gastroesophageal Reflux Cancer No Other PMHx Discussed below Social History Patient Social History Marrital Status: Employed/Student: employed Alcohol Use: Occasionally Uses Recreational Drug Use: No Recent Foreign Travel: No Contact w/other who traveled: No Family Hx Significant Family History: No Pertinent Family Hx Other Noncontributory to her current condition ROS-Cardiology Review of Systems General: No Chills, No Night Sweats, No Fatigue, No Malaise, No Appetite; Other (Dizziness) HEENT: No Head Aches, No Visual Changes, No Eye Pain, No Ear Pain, No Dysphasia, No Sinus Congestion, No Post Nasal Drip, No Sore Throat Pulmonary: No Dyspnea, No Cough, No Pleuritic Chest Pain Cardiovascular: Chest Pain; No: Palpitations, Orthopnea, Paroxysmal Noc. Dyspnea, Edema, Lt Headedness Gastrointestinal: No: Nausea, Vomiting, Abdominal Pain, Diarrhea, Constipation, Melena, Hematochezia Genitourinary: No Dysuria, No Frequency, No Incontinence, No Hematuria, No Re tention Musculoskeletal: No: neck pain, shoulder pain, arm pain, back pain, hand pain, leg pain, foot pain Neurological: No: Weakness, Numbness, Incoordination, Change in speech, Confusion, Seizures Home Medications & Allergies Allergies: Coded Allergies: No Allergy Information Available (Unverified , 12/12/17) Home Medication List Reviewed: Yes Exam-Cardiology Vital Signs Vital Signs Date Time Temp Pulse Resp B/P (MAP) Pulse Ox O2 Delivery O2 Flow Rate FiO2 12/09/18 06:33 100 Nasal Cannula 4.00 12/09/18 06:00 70 13 152/99 (116) 12/09/18 04:00 37.0 Exam General Appearance: Alert, Oriented X3, Cooperative, No Acute Distress HEENT: Atraumatic, PERRLA Respiratory: Clear to Auscultation, Normal Air Movement Cardiovascular: Regular Rate, Normal S1, Normal S2, No Murmurs Abdominal: Normal Bowel Sounds, Soft, No Tenderness, No Hepatosplenomegaly, No Masses Extremities: No Clubbing, No Cyanosis, No Edema, Normal Pulses, No Tenderness/Swelling Skin: No Rashes, No Breakdown, No Significant Lesion Neuro: Normal Gait, Normal Speech, Strength at 5/5 X4 Ext, Normal Tone, Sensation Intact Psych/Mental Status: Mental Status NL, Mood NL Results Labs Labs Laboratory Tests 12/08/18 07:58: White Blood Count 8.0, Red Blood Count 5.22, Hemoglobin 15.9, Hematocrit 47, Mean Corpuscular Volume 91, Mean Corpuscular Hemoglobin 31, Mean Corpuscular Hemoglobin Concent 34, Red Cell Distribution Width 13.1, Platelet Count 266, Mean Platelet Volume 9.7, Prothrombin Time 13.2, INR Comment 1.0, Activated Partial Thromboplast Time 31, Urine Color YELLOW, Urine Clarity CLEAR, Urine pH 6, Urine Specific [place] 1.025H, Urine Protein 2+H, Urine Glucose (UA) 2+H, Urine Ketones NEGATIVE, Urine Nitrite NEGATIVE, Urine Bilirubin NEGATIVE, Urine Urobilinogen NORMAL, Urine Leukocyte Esterase 3+H, Urine RBC (Auto) 1+H, Urine RBC 2-5H, Urine WBC 50-100H, Urine Squamous Epithelial Cells 25-50H, Urine Crystals NONE, Urine Bacteria MODERATEH, Urine Casts NONE, Urine Mucus NEGATIVE, Urine Culture Indicated YES, Sodium Level 140, Potassium Level 4.0, Chloride Level 103, Carbon Dioxide Level 23, Anion Gap 14, Blood Urea Nitrogen 11, Creatinine 1.03, Estimat Glomerular Filtration Rate 53, BUN/Creatinine Ratio 11, Glucose Level 224H, Calcium Level 10.0, Corrected Calcium 9.8, Total Bilirubin 0.5, Aspartate Amino Transf (AST/SGOT) 63H, Alanine Aminotransferase (ALT/SGPT) 106H, Alkaline Phosphatase 89, Total Protein 7.9, Albumin 4.2 12/09/18 03:05: White Blood Count 10.7, Red Blood Count 4.30L, Hemoglobin 13.1, Hematocrit 39, Mean Corpuscular Volume 92, Mean Corpuscular Hemoglobin 31, Mean Corpuscular Hemoglobin Concent 33, Red Cell Distribution Width 12.3, Platelet Count 190, Mean Platelet Volume 10.1, Sodium Level 133L, Potassium Level 4.8, Chloride Level 101, Carbon Dioxide Level 25, Anion Gap 7, Blood Urea Nitrogen 23H, Cre atinine 0.91, Estimat Glomerular Filtration Rate > 60, BUN/Creatinine Ratio 25, Glucose Level 292H, Calcium Level 8.7, Neutrophils (%) (Auto) 72, Lymphocytes (%) (Auto) 15, Monocytes (%) (Auto) 13H, Eosinophils (%) (Auto) 0, Basophils (%) (Auto) 0, Neutrophils # (Auto) 7.7, Lymphocytes # (Auto) 1.6, Monocytes # (Auto) 1.4H, Eosinophils # (Auto) 0.0, Basophils # (Auto) 0.0, Phosphorus Level 3.2, Magnesium Level 1.8 A/P-Cardiology Admission Diagnosis Sinus node dysfunction Dual-chamber pacemaker Pneumothorax Urinary tract infection Admission Status: Inpatient Order (span 2 midnights) Reason for Inpatient Admission: Pneumothorax Assessment/Plan Sinus bradycardia, sinus node dysfunction, worsened by beta blockers, has underlying abdominal aortic aneurysm which require aggressive treatment, stress test and 2-D echocardiogram done November 2018 revealed no ischemia or infarct normal EF. Patient underwent 48 hour Holter monitor after being off of her atenolol for 24 hours revealing sinus node dysfunction with sinus exit block with pauses up to 2.5 seconds. Multiple PVCs, PACs, runs of PAT alternating with sinus bradycardia with heart rate in the 40s. Patient has been symptomatic, had a dual-chamber pacemaker implanted complicated by pneumothorax, had chest tube placed. Recovering well. Status post dual-chamber pacemaker implantation, complex procedure, required multiple technique to achieve adequate sensing and capture activity in the atrial lead, have a hematoma at the pacemaker site and small pneumothorax, had a chest tube placed and recovering well. Urinary tract infection noted incidentally, receiving antibiotic Allergy to lidocaine Palpitations, occurring more frequently. Noted to have multiple episodes of PV Cs, PACs and short runs of paroxysmal atrial tachycardia as discussed above. Started on low-dose beta blockers Hypertension, labile, started on beta blockers. Continue to monitor Hyperlipidemia, controlled, reevaluate again in 6 months Abdominal aortic aneurysm had a stent placed in [address] Delacruz in [place] [facility]. Has been followed in [place] [facility], had a CT scan done in [place], I'll try to obtain copy of the results Nonobstructive carotid artery stenosis per carotid duplex done November 2018. Continue to monitor. COPD, followed by Dr. Zenaida Good, educated on smoking cessation Dizziness and lightheadedness probably due to bradycardia. Clinical Quality Measures DVT/VTE Risk/Contraindication: Risk Factor Score Per Nursin RFS Level Per Nursing on Admit: 4+=Very High LIBRA ROONEY MD Dec 09, 2018 07:49
[2018-12-09] MEDS: LORATADINE (CLARITIN) 10 MG TAB PO SCH (08:40)
[2018-12-09] MEDS: lisINopril 20 MG (PRINIVIL) TABLET PO SCH (08:40)
[2018-12-09] MEDS ORDERED: NON-FORMULARY MEDICATION 1 EA EA (Fluticasone Propionate (Flonase Allergy Relief) 2 SPRAY) NS SCH (09:00)
[2018-12-09] MEDS ORDERED: NON-FORMULARY MEDICATION 1 EA EA (Multivits-Min/Iron/FA/Lutein (Centrum Silver Women Table PO SCH (09:00)
[2018-12-09] MEDS: CEPHALEXIN 250 MG (KEFLEX) CAP PO SCH ×4 (09:03→20:22)
--- NOTE | 2018-12-09 10:49 | Progress Note - Surgery ---
KATINA STROUD,MED STUDENT 12/09/18 1049: Subjective Date Seen by a Provider: Dec 09, 2018 Time Seen by a Provider: 08:40 Subjective/Events-last exam Patient seen and examined. She is feeling better today. Review of Systems General: No Chills Pulmonary: Dyspnea (improved); No Cough Cardiovascular: No: Chest Pain Musculoskeletal: shoulder pain Neurological: No: Weakness, Confusion Objective Exam Vital Signs Date Time Temp Pulse Resp B/P (MAP) Pulse Ox O2 Delivery O2 Flow Rate FiO2 12/09/18 08:00 36.4 77 13 151/95 (113) 97 Nasal Cannula 4.00 12/09/18 07:00 75 12/09/18 06:33 100 Nasal Cannula 4.00 12/09/18 06:00 70 13 152/99 (116) 98 Nasal Cannula 4.00 12/09/18 05:00 71 15 139/95 (110) 98 Nasal Cannula 4.00 12/09/18 04:00 73 18 146/86 (106) 98 Nasal Cannula 4.00 12/09/18 04:00 93 Nasal Cannula 4.00 12/09/18 04:00 37.0 12/09/18 03:00 72 17 141/93 (109) 97 Nasal Cannula 4.00 12/09/18 02:00 76 21 161/92 (115) 98 Nasal Cannula 4.00 12/09/18 01:00 77 17 152/87 (108) 99 Nasal Cannula 4.00 12/09/18 01:00 74 12/09/18 00:00 36.7 12/09/18 00:00 81 17 159/91 (113) 98 Nasal Cannula 4.00 12/09/18 00:00 94 Nasal Cannula 4.00 12/08/18 23:00 80 16 139/81 (100) 92 Nasal Cannula 4.00 12/08/18 22:00 87 15 131/90 (104) 96 Nasal Cannula 4.00 12/08/18 21:00 96 Nasal Cannula 4.00 12/08/18 21:00 92 Nasal Cannula 4.00 12/08/18 21:00 91 17 137/96 (110) 96 Nasal Cannula 4.00 12/08/18 20:12 36.5 12/08/18 20:00 91 15 156/94 (114) 95 Nasal Cannula 4.00 12/08/18 19:18 96 Nasal Cannula 4.00 12/08/18 19:00 92 12/08/18 19:00 92 14 121/80 (94) 96 Nasal Cannula 4.00 12/08/18 18:00 92 12 146/92 (110) 98 Nasal Cannula 4.00 12/08/18 17:00 93 29 148/112 (124) 97 Nasal Cannula 4.00 12/08/18 16:43 35.8 12/08/18 16:00 95 Nasal Cannula 4.00 12/08/18 16:00 69 15 144/103 (117) 93 Nasal Cannula 4.00 12/08/18 15:30 147/93 (111) Nasal Cannula 4.00 12/08/18 15:00 121/96 (104) Nasal Cannula 4.00 12/08/18 14:30 96 187/106 (133) Nasal Cannula 4.00 12/08/18 14:22 95 Nasal Cannula 5.00 12/08/18 14:15 94 12/08/18 14:00 78 23 95 Nasal Cannula 4.00 12/08/18 13:45 71 30 94 Nasal Cannula 4.00 12/08/18 13:30 63 152/88 (109) Nasal Cannula 4.00 I & O 12/09/18 07:00 Intake Total 950 ml Output Total 1800 ml Balance -850 ml Capillary Refill : General Appearance: No Apparent Distress, WD/WN HEENT: PERRL/EOMI, Moist Mucous Membranes Respiratory: Lungs Clear, Normal Breath Sounds, No Respiratory Distress; No Wheezing; Other (hematoma left upper chest near pacemaker, thoravent left mid axillary line at nipple line) Cardiovascular: Regular Rate, Rhythm, No Murmur Peripheral Pulses: 2+ Radial Pulses (R), 2+ Radial Pulses (L) Gastrointestinal: non tender, soft Neurologic/Psychiatric: Alert, Oriented x3 Skin: Other (see respiratory) Results Lab Laboratory Tests 12/09/18 03:05: White Blood Count 10.7, Red Blood Count 4.30L, Hemoglobin 13.1, Hematocrit 39, Mean Corpuscular Volume 92, Mean Corpuscular Hemoglobin 31, Mean Corpuscular Hemoglobin Concent 33, Red Cell Distribution Width 12.3, Platelet Count 190, Mean Platelet Volume 10.1, Neutrophils (%) (Auto) 72, Lymphocytes (%) (Auto) 15, Monocytes (%) (Auto) 13H, Eosinophils (%) (Auto) 0, Basophils (%) (Auto) 0, Neutrophils # (Auto) 7.7, Lymphocytes # (Auto) 1.6, Monocytes # (Auto) 1.4H, Eosinophils # (Auto) 0.0, Basophils # (Auto) 0.0, Sodium Level 133L, Potassium Level 4.8, Chloride Level 101, Carbon Dioxide Level 25, Anion Gap 7, Blood Urea Nitrogen 23H, Creatinine 0.91, Estimat Glomerular Filtration Rate > 60, BUN/Creatinine Ratio 25, Glucose Level 292H, Calcium Level 8.7, Phosphorus Level 3.2, Magnesium Level 1.8 Microbiology 12/08/18 Urine Culture - Final, Complete 3 or more isolates Assessment/Plan Assessment/Plan Assessment/Plan Left pneumothorax Shortness of breath: resolved S/P Dual chamber Pacemaker Placement CXR showed reexpansion of left lung with no residual pneumothorax. Continue pain control as needed. Will leave thoravent in place until pneumothorax sealed for 24 hours. Repeat CXR tomorrow morning to reevaluate. Clinical Quality Measures DVT/VTE Risk/Contraindication: Risk Factor Score Per Nursin RFS Level Per Nursing on Admit: 4+=Very High ABDIRAHMAN SANCHEZ DO 12/09/18 1121: Subjective Subjective/Events-last exam Patient breathing easier today. Not as much discomfort. Thoravent in place. repeat chest x ray has reexpansion of the left lung. Objective Exam General Appearance: No Apparent Distress HEENT: PERRL/EOMI Respiratory: No Accessory Muscle Use, No Respiratory Distress, Other (hematoma left upper chest near pacemaker, thoravent left mid axillary line at nipple line functioning) Cardiovascular: Regular Rate, Rhythm Gastrointestinal: non tender, soft Extremity: Non Tender Neurologic/Psychiatric: Alert, Oriented x3 Skin: Warm/Dry, Other (hematoma left chest) Lymphatic: No Adenopathy Assessment/Plan Assessment/Plan Assessment/Plan Left pneumothorax Shortness of breath: resolved S/P Dual chamber Pacemaker Placement repeat chest x ray in am can be discharged home with thoravent with close follow up when okay from medical perspective. Supervisory-Addendum Brief Verification & Attestation Participated in pt care: history, MDM, physical Personally performed: exam, history, MDM, supervision of care Care discussed with: Medical Student Procedures: n/a Results interpretation: Verified all documentation Verification and Attestation of Medical Student E/M Service A medical student performed and documented this service in my presence. I reviewed and verified all information documented by the medical student and made modifications to such information, when appropriate. I personally performed the physical exam and medical decision making. Abdirahman Sanchez, Dec 09, 2018,11:20 KATINA STROUD MED STUDENT Dec 09, 2018 10:49 ABDIRAHMAN SANCHEZ DO Dec 09, 2018 11:21
--- NOTE | 2018-12-09 11:01 | NUR ---
TRANSFERRED FROM ICU PER W/C. AT BEDSIDE. LARGE AMT PURPLISH BRUISING TO LEFT UPPER AND MIDDLE CHEST AND MOD. AMT SWELLING. DRESSING TO LEFT CHEST PACEMAKER IN PLACE WITH GAUZE AND OP-SITE IN PLACE. HEART RATE REGULAR. SKIN W/D. RESP. REGULAR. HOB UP . CHEERFUL AND TALKATIVE. NO EDEMA IN LOWER EXT. SMALL CHEST TUBE TO LEFT MIDDLE LATERAL CHEST WITH SMALL AMT PINKISH DRAINAGE NOTED. AREA WITH DRESSING D/I AND REDNESS OR SWELLING NOTED.
[2018-12-09] MEDS ORDERED: POLYETHYLENE GLYCOL 17 GM (MIRALAX) PACK PO SCH (21:00)
[2018-12-10] VITALS: BP 148/88
[2018-12-10 04:00] VITALS: BP 150/80
[2018-12-10 04:56] LABS: BASOPHILS % (AUTO) 0 % (0-10); EOSINOPHILS # (AUTO) 0.3 10^3/uL (0.0-0.3); EOSINOPHILS % (AUTO) 4 % (0-10); HEMATOCRIT 39 % (35-52); HEMOGLOBIN 12.9 G/DL (11.5-16.0); LYMPHOCYTES # (AUTO) 1.9 X 10^3 (1.0-4.0); LYMPHOCYTES % (AUTO) 27 % (12-44); MEAN CORPUSCULAR HEMOGLOBIN 30 PG (25-34); MEAN CORPUSCULAR HGB CONC 34 G/DL (32-36); MEAN CORPUSCULAR VOLUME 90 FL (80-99); MEAN PLATELET VOLUME 10.1 FL (7.4-10.4); MONOCYTES # (AUTO) 0.8 X 10^3 (0.0-1.0); MONOCYTES % (AUTO) 11 % (0-12); NEUTROPHILS % (AUTO) 58 % (42-75); PLATELET COUNT 176 10^3/uL (130-400); RED CELL DISTRIBUTION WIDTH 12.4 % (10.0-14.5); WHITE BLOOD COUNT 6.9 10^3/uL (4.3-11.0)
[2018-12-10 05:17] LABS: BUN/CREATININE RATIO 22; CARBON DIOXIDE 26 MMOL/L (21-32); CHLORIDE 103 MMOL/L (98-107); CREATININE SERUM 0.87 MG/DL (0.60-1.30); GFR ESTIMATED > 60; GLUCOSE 226 MG/DL (70-105); MAGNESIUM 1.8 MG/DL (1.6-2.4); PHOSPHORUS 2.2 MG/DL (2.3-4.7); POTASSIUM 4.4 MMOL/L (3.6-5.0); SODIUM 138 MMOL/L (135-145)
[2018-12-10] MEDS: MULTIVIT W/MINERALS TAB (THERAGRAN M) PO SCH (06:03)
[2018-12-10] MEDS: RT-ADVAIR HFA 115/21 MCG PER PUFF IH SCH (06:58)
[2018-12-10 08:00] VITALS: BP 169/94
[2018-12-10] MEDS: LORATADINE (CLARITIN) 10 MG TAB PO SCH (08:18)
[2018-12-10] MEDS: KETOROLAC 30 MG/ML VIAL IVP PRN (08:18)
[2018-12-10] MEDS: CEPHALEXIN 250 MG (KEFLEX) CAP PO SCH (08:23)
[2018-12-10] MEDS: lisINopril 20 MG (PRINIVIL) TABLET PO SCH (08:23)
[2018-12-10] MEDS ORDERED: FLUTICASONE NASAL SPRAY (FLONASE) 16 GM BTL NS SCH (09:00)
[2018-12-10] MEDS ORDERED: POLYETHYLENE GLYCOL 17 GM (MIRALAX) PACK PO SCH (09:15)
[2018-12-10] MEDS ORDERED: CEPH250C PO (10:19)
[2018-12-10] MEDS ORDERED: METO-387 PO (10:19)
--- NOTE | 2018-12-10 10:23 | Cardiology Discharge Summary ---
Discharge Summary Hospital Course Problems Reviewed?: Yes Hospital Course Date of Admission: Admission Diagnosis : Family Physician/Provider: Karine Singleton MD Date of Discharge: 12/10/18 Discharge Diagnosis: [ Sinus node dysfunction Cardiac Pacemaker Palpitation Hypertension Abdominal aortic aneurysm] Hospital Course: [ Sinus bradycardia, sinus node dysfunction, worsened by beta blockers, has underlying abdominal aortic aneurysm which require aggressive treatment, stress test and 2-D echocardiogram done November 2018 revealed no ischemia or infarct normal EF. Patient underwent 48 hour Holter monitor after being off of her atenolol for 24 hours revealing sinus node dysfunction with sinus exit block with pauses up to 2.5 seconds. Multiple PVCs, PACs, runs of PAT alternating with sinus bradycardia with heart rate in the 40s. Patient has been symptomatic, had a dual-chamber pacemaker implanted complicated by pneumothorax, had chest tube placed. Recovering well. will follow with Dr Sanchez as an outpatient Status post dual-chamber pacemaker implantation, complex procedure, required multiple technique to achieve adequate sensing and capture activity in the atrial lead, have a hematoma at the pacemaker site and small pneumothorax, had a chest tube placed and recovering well. Urinary tract infection noted incidentally, receiving antibiotic Allergy to lidocaine Palpitations, occurring more frequently. Noted to have multiple episodes of PVCs, PACs and short runs of paroxysmal atrial tachycardia as discussed above. Started on low-dose beta blockers Hypertension, labile, started on beta blockers. Continue to monitor Hyperlipidemia, controlled, reevaluate again in 6 months Abdominal aortic aneurysm had a stent placed in [address] Delacruz in [facility]. Has been followed in [facility], had a CT scan done in [place], I'll try to obtain copy of the results Nonobstructive carotid artery stenosis per carotid duplex done November 2018. Continue to monitor. COPD, followed by Dr. Zenaida Good, educated on smoking cessation Dizziness and lightheadedness probably due to bradycardia.] Labs and Pending Lab Test: Laboratory Tests 12/10/18 04:23: White Blood Count 6.9, Red Blood Count 4.26L, Hemoglobin 12.9, Hematocrit 39, Mean Corpuscular Volume 90, Mean Corpuscular Hemoglobin 30, Mean Corpuscular Hemoglobin Concent 34, Red Cell Distribution Width 12.4, Platelet Count 176, Mean Platelet Volume 10.1, Neutrophils (%) (Auto) 58, Lymphocytes (%) (Auto) 27, Monocytes (%) (Auto) 11, Eosinophils (%) (Auto) 4, Basophils (%) (Auto) 0, Neutrophils # (Auto) 4.0, Lymphocytes # (Auto) 1.9, Monocytes # (Auto) 0.8, Eosinophils # (Auto) 0.3, Basophils # (Auto) 0.0 12/10/18 04:35: Sodium Level 138, Potassium Level 4.4, Chloride Level 103, Carbon Dioxide Level 26, Anion Gap 9, Blood Urea Nitrogen 19H, Creatinine 0.87, Estimat Glomerular Filtration Rate > 60, BUN/Creatinine Ratio 22, Glucose Level 226H, Calcium Level 9.0, Phosphorus Level 2.2L, Magnesium Level 1.8 Microbiology 12/08/18 MRSA Screen - Final, Complete MRSA not isolated 12/08/18 Urine Culture - Final, Complete 3 or more isolates Home Meds Active Metoprolol Succinate 25 Mg Tab.er.24h 25 Mg PO DAILY Cephalexin 250 Mg Capsule 250 Mg PO QID Reported Lantus (Insulin Glargine,Hum.rec.anlog) 100 Unit/1 Ml Vial 18 Unit SQ HS INJECTING 18 UNITS. BUT PT IS TO INCREASE DOSE TO 21 UNITS IF BS IS STILL NOT STABLE Ibuprofen 200 Mg Tablet 600 Mg PO TID PRN Loratadine 10 Mg Tablet 10 Mg PO DAILY Probiotic Acidophilus (Lactobacillus Acidophilus) 1 Each Tablet 1 Each PO HS [Calcium+Mag+Zinc+D] 3 Tab PO HS Pepcid AC (Famotidine) 20 Mg Tablet 20 Mg PO BID PRN Mucus Relief Dm Tablet (Guaifenesin/Dextromethorphan) 1 Each Tablet 1 Each PO TID PRN Cranberry Concentrate Softgel (Cranberry Conc/Ascorbic Acid) 1 Each Capsule 1 Each PO BID Vitamin D3 (Cholecalciferol (Vitamin D3)) 1,000 Unit Capsule 2,000 Unit PO HS Garlic 1,000 Mg Capsule 1,000 Mg PO BID Centrum Silver Women Tablet (Multivits-Min/Iron/FA/Lutein) 1 Each Tablet 1 Each PO DAILY Flonase Allergy Relief (Fluticasone Propionate) 9.9 Ml [place].susp 2 [place] NS DAILY 2 SPRAYS PER NOSTRIL DAILY X 2 DAYS THEN 1 SPRAY DAILY Ventolin Hfa (Albuterol Sulfate) 1 Puff Puff 2 Puff INH Q4H PRN 1 PUFF = 90 MCG Advair Hfa 115-21 Mcg Inhaler (Fluticasone/Salmeterol) 12 Gm Hfa.aer.ad 2 Puff IH BID Montelukast Sodium 10 Mg Tablet 10 Mg PO DAILY Lisinopril 20 Mg Tablet 20 Mg PO DAILY Assessment/Pt DC Instructions Arrangement for follow-up with Dr. Sanchez on Tuesday and Dr. Dong on Discharge Diet: No Restrictions Orders-Post D/C & Referrals Pneu Vac Indicated: Yes Discharge Physical Examination Allergies: Coded Allergies: lidocaine (Unverified Allergy, Intermediate, Shortness of Breath, 12/09/18) lanolin (Unverified Allergy, Unknown, 12/09/18) latex (Unverified Allergy, Unknown, 12/09/18) orange (Unverified Allergy, Unknown, 12/09/18) General Appearance: No Apparent Distress, WD/WN HEENT: PERRL/EOMI, TMs Normal, Normal ENT Inspection, Pharynx Normal Respiratory: Chest Non Tender, No Accessory Muscle Use, No Respiratory Distress, Accessory Muscle Use, Crackles, Other (hematoma over pacer site) Cardiovascular: Regular Rate, Rhythm, No Edema, No Gallop, No JVD, No Murmur Gastrointestinal: Normal Bowel Sounds, No Organomegaly, No Pulsatile Mass, Non Tender Extremity: Normal Capillary Refill, Normal Inspection, Normal Range of Motion, Non Tender, No Pedal Edema Skin: Normal Color, Warm/Dry Neurologic/Psychiatric: Alert, Oriented x3, No Motor/Sensory Deficits, Normal Mood/Affect, test operator II-XII Norm as Tested Clinical Quality Measures DVT/VTE Risk/Contraindication: Risk Factor Score Per Nursin RFS Level Per Nursing on Admit: 4+=Very High LIBRA DONG MD Dec 10, 2018 10:23
--- NOTE | 2018-12-10 10:42 | Progress Note - Surgery ---
KATINA STROUD,MED STUDENT 12/10/18 1042: Subjective Date Seen by a Provider: Dec 10, 2018 Time Seen by a Provider: 09:45 Subjective/Events-last exam Patient is a 68 yo female that was consulted for a left pneumothorax. Thoravent was placed in the left chest which showed lung reexpansion on CXR. She states it is easier to breath and there is not as much discomfort at this time. Review of Systems General: No Chills, No Night Sweats HEENT: No Head Aches, No Visual Changes Pulmonary: No Dyspnea, No Cough Cardiovascular: No: Lt Headedness Gastrointestinal: Constipation; No: Nausea, Vomiting, Abdominal Pain, Diarrhea Genitourinary: No Dysuria, No Incontinence Musculoskeletal: shoulder pain Neurological: No: Weakness, Confusion Objective Exam Vital Signs Date Time Temp Pulse Resp B/P (MAP) Pulse Ox O2 Delivery O2 Flow Rate FiO2 12/10/18 08:00 36.4 72 18 169/94 (119) 97 Room Air 12/10/18 07:00 77 12/10/18 06:58 95 Room Air 12/10/18 04:00 36.4 68 16 150/80 (103) 96 Room Air 12/10/18 01:00 71 12/10/18 00:00 36.2 72 20 148/88 (108) 97 Room Air 12/09/18 21:00 96 Room Air 3.00 12/09/18 19:27 36.8 72 18 122/55 (77) 96 Room Air 12/09/18 19:08 95 Room Air 12/09/18 19:00 72 12/09/18 15:48 37.3 69 20 129/69 (89) 99 Nasal Cannula 3.00 12/09/18 12:26 73 12/09/18 12:00 36.6 73 20 152/95 (114) 97 Nasal Cannula 3.00 I & O 12/10/18 07:00 Intake Total 1430 ml Balance 1430 ml Capillary Refill : Less Than 3 Seconds General Appearance: No Apparent Distress, WD/WN HEENT: PERRL/EOMI, Moist Mucous Membranes Respiratory: Chest Non Tender, Lungs Clear, No Respiratory Distress, Other (hematoma over pacemaker site) Cardiovascular: Regular Rate, Rhythm, No Murmur Peripheral Pulses: 2+ Radial Pulses (R), 2+ Radial Pulses (L) Gastrointestinal: normal bowel sounds, non tender, soft; No guarding, No rebound, No tenderness Extremity: Non Tender, No Pedal Edema Neurologic/Psychiatric: Alert, Oriented x3, Normal Mood/Affect Skin: Warm/Dry, Other (bruising over upper chest and left shoulder) Lymphatic: No Adenopathy Results Lab Laboratory Tests 12/10/18 04:23: White Blood Count 6.9, Red Blood Count 4.26L, Hemoglobin 12.9, Hematocrit 39, Mean Corpuscular Volume 90, Mean Corpuscular Hemoglobin 30, Mean Corpuscular Hemoglobin Concent 34, Red Cell Distribution Width 12.4, Platelet Count 176, Mean Platelet Volume 10.1, Neutrophils (%) (Auto) 58, Lymphocytes (%) (Auto) 27, Monocytes (%) (Auto) 11, Eosinophils (%) (Auto) 4, Basophils (%) (Auto) 0, Neutrophils # (Auto) 4.0, Lymphocytes # (Auto) 1.9, Monocytes # (Auto) 0.8, Eosinophils # (Auto) 0.3, Basophils # (Auto) 0.0 12/10/18 04:35: Sodium Level 138, Potassium Level 4.4, Chloride Level 103, Carbon Dioxide Level 26, Anion Gap 9, Blood Urea Nitrogen 19H, Creatinine 0.87, Estimat Glomerular Filtration Rate > 60, BUN/Creatinine Ratio 22, Glucose Level 226H, Calcium Level 9.0, Phosphorus Level 2.2L, Magnesium Level 1.8 Microbiology 12/08/18 MRSA Screen - Final, Complete MRSA not isolated 12/08/18 Urine Culture - Final, Complete 3 or more isolates Assessment/Plan Assessment/Plan Assessment/Plan Left pneumothorax shortness of breath: resolved S/P Dual chamber Pacemaker Placement Left apical pneumothorax CXR showed thoravent in place with reexpansion of the left lower lung and new apical pneumothorax. Thoravent has sealed. Repeat CXR in the morning followed by an office visit with Dr. Sanchez in clinic. May go home with thoravent in place. Clinical Quality Measures DVT/VTE Risk/Contraindication: Risk Factor Score Per Nursin RFS Level Per Nursing on Admit: 4+=Very High ABDIRAHMAN SANCHEZ DO 12/10/18 1056: Subjective Subjective/Events-last exam breathing easy. occasional slight discomfort. chest x ray with small apical pneumothorax thoracostomy tube in place. denies n/v fever sweats chills shortness of breath or chest pain. Objective Exam General Appearance: No Apparent Distress HEENT: PERRL/EOMI Neck: Normal Inspection, Non Tender Respiratory: Chest Non Tender, No Accessory Muscle Use, No Respiratory Distress, Other (hematoma over pacemaker site) Cardiovascular: Regular Rate, Rhythm Gastrointestinal: non tender, soft Extremity: Non Tender Neurologic/Psychiatric: Alert, Oriented x3, Normal Mood/Affect Skin: Warm/Dry Lymphatic: No Adenopathy Assessment/Plan Assessment/Plan Assessment/Plan Left pneumothorax shortness of breath: resolved S/P Dual chamber Pacemaker Placement tiny pneumothorax in apices of left side. thoravent in place. okay with dc and outpatient follow up. any worsening of breathing symptoms be seen at that time. she will see me tomorrow in clinic Supervisory-Addendum Brief Verification & Attestation Participated in pt care: history, MDM, physical Personally performed: exam, history, MDM, supervision of care Care discussed with: Medical Student Procedures: n/a Results interpretation: Verified all documentation Verification and Attestation of Medical Student E/M Service A medical student performed and documented this service in my presence. I reviewed and verified all information documented by the medical student and made modifications to such information, when appropriate. I personally performed the physical exam and medical decision making. Abdirahman Sanchez, Dec 10, 2018,10:56 KATINA STROUD MED STUDENT Dec 10, 2018 10:42 ABDIRAHMAN SANCHEZ DO Dec 10, 2018 10:56
[2018-12-10 11:05] VITALS: BP 169/94
--- NOTE | 2018-12-10 11:05 | NUR ---
MAURA CID demonstrates understanding of discharge instructions and accurately returns instructions upon questioning. Copy of Post-Discharge Instructions given to PT AND . MAURA CID is able to manage continuing needs after discharge. Patients belongings returned to PT. Patient discharged from 425-1 on 12/10/18 at 1105. MAURA CID left floor via W/C, accompanied by STAFF AND PER AUTO.
--- NOTE | 2018-12-10 12:48 | Diagnostic Imaging Report ---
EXAM: Portable semi-erect chest at 4:41 a.m. INDICATION: Pneumothorax FINDINGS: The heart size is within normal limits and stable when compared to 12/09/2018. The left-sided pacemaker seen previously is again evident as is the small caliber left-sided chest tube. There may be a minimal pneumothorax on the left. The lungs are otherwise generally clear. The mediastinum is not widened. The osseous structures are intact. IMPRESSION: There is a question of a minimal apical pneumothorax on the left. The overall appearance of the chest is otherwise stable. Dictated by: Dictated on workstation # [id number]
== END 2018-12-10 11:05 | disposition home or self-care (01) ==
LOC: CATH 07:35 → ICU 13:22 → 4TH 12-09 10:50 → CATH 12-10 11:05
PROVIDERS: ATTEND Internal Medicine Cardiovascular Disease
DX: J93.9 Pneumothorax, unspecified (principal); I49.5 Sick sinus syndrome; I71.9 Aortic aneurysm of unspecified site, without rupture; I10 Essential (primary) hypertension; R06.00 Dyspnea, unspecified; R00.2 Palpitations; J44.9 Chronic obstructive pulmonary disease, unspecified; E74.29 Other disorders of galactose metabolism; E78.5 Hyperlipidemia, unspecified; I77.1 Stricture of artery; K21.9 Gastro-esophageal reflux disease without esophagitis; N39.0 Urinary tract infection, site not specified; F17.210 Nicotine dependence, cigarettes, uncomplicated; Z95.1 Presence of aortocoronary bypass graft; Z88.8 Allergy status to other drugs, medicaments and biological substances; Z91.018 Allergy to other foods; Z79.899 Other long term (current) drug therapy
CPT/HCPCS: 33208; 36415; 71045; 80048; 80053; 81000; 83735; 84100; 85025; 85027; 85610; 85730; 87081; 87088; 93005; 94640; 94760

== ENCOUNTER → 2018-12-11 | Outpatient (CLI) | payer MEDICARE ==
[~2018-12-11] MED LIST changes: +CALCIUM PO; +CEPH250C PO; +CHOL10007 PO; +CRAN1CAP9 PO; +FAMO20TA45 PO; +FLUT12AE4 IH; +FLUT9.9S NS; +GARL10002 PO; +GUAI1TAB22 PO; +IBUP-2055 PO; +INSU100V6 SQ; -IOHEXOL 350 MG/ML 150 ML (OMNIPAQUE 350) VIAL IV ONE; +LACT1TAB25 PO; +LISI-552 PO; +LORA10TA7 PO; +MAG PO; +METO-387 PO; +MONT10TA24 PO; +MULT-1021 PO; -NS 250 ML (IVPB) BAG IV ONE; +RT-ALBUINH INH; -RT-ALBUTEROL SULF 2.5 MG/3 ML PRE-MIX VIAL INH ONE; +ZINC PO; +[UNRECOGNIZED DRUG - OTHER] PO
--- NOTE | 2018-12-11 10:16 | Diagnostic Imaging Report ---
EXAMINATION: CHEST (PA AND LATERAL) CLINICAL INDICATION: 68-year-old female, followup pneumothorax. COMPARISON: December 10, 2018. FINDINGS: There is a left-sided cardiac assist device with right atrial and right ventricular leads. Leads appear intact. There is a left-sided chest tube. There is no currently visible left pneumothorax. There is no identified right pneumothorax. There is a nodule projecting in the left lower lobe measuring 7 mm in size. There is a probable calcified granuloma in the right lower lobe. There is no identified focal airspace consolidation additionally present. There is an inferior vena cava filter noted. IMPRESSION: 1. Left-sided chest tube in place without currently visible pneumothorax. 2. Calcified left lower lobe 7 mm pulmonary nodule consistent with a benign calcified granuloma correlated with prior imaging. There is also a right lower lobe benign calcified granuloma. Dictated by: Dictated on workstation # [id number]
== END ==
LOC: RAD 09:42
PROVIDERS: ATTEND Surgery
DX: J93.9 Pneumothorax, unspecified (principal); R91.1 Solitary pulmonary nodule; Z95.818 Presence of other cardiac implants and grafts; Z97.8 Presence of other specified devices
CPT/HCPCS: 71046

== ENCOUNTER → 2018-12-11 | Outpatient (CLI) | payer MEDICARE ==
--- NOTE | 2018-12-11 15:29 | Diagnostic Imaging Report ---
Indication: Follow-up pneumothorax PA and lateral chest There is a left subclavian dual chamber pacemaker. Heart size and pulmonary vascularity are normal. Lungs are clear. There are no effusions or pneumothoraces. IMPRESSION: Negative chest Dictated by: Dictated on workstation # [id number]
== END ==
LOC: RAD 15:07
PROVIDERS: ATTEND Surgery
DX: J93.9 Pneumothorax, unspecified (principal)
CPT/HCPCS: 71046

== ENCOUNTER → 2019-01-02 | Outpatient (CLI) | payer MEDICARE ==
--- NOTE | 2019-01-02 11:19 | Diagnostic Imaging Report ---
EXAMINATION: CT Chest without contrast (lung screening). TECHNIQUE: Multiple contiguous axial images were obtained through the chest without the use of intravenous contrast according to lung cancer screening protocol. All CT scans use one or more of the following dose optimizing techniques: automated exposure control, MA and/or KvP adjustment based on a patient size and exam type, or iterative reconstruction. HISTORY: 100 pack year history of smoking. COMPARISON: None available. FINDINGS: The lungs are clear without edema or pneumonia. No pleural effusion or pneumothorax. No suspicious nodules. Lungs are severely emphysematous. Heart size is normal. No pericardial effusion. Aorta is normal in caliber. There is no axillary or supraclavicular lymphadenopathy. There is no mediastinal lymphadenopathy. Left subclavian pacemaker is present. There are moderate coronary artery calcifications. Calcified mediastinal lymph nodes are noted. Limited views of the upper abdomen are normal. There are no suspicious osseus lesions. IMPRESSION: 1. No suspicious pulmonary nodules. LUNG-RADS CATEGORY: 1 MODIFIER: None. OTHER SIGNIFICANT FINDINGS: None. Dictated by: Dictated on workstation # [id number]
== END ==
LOC: RAD 10:34
PROVIDERS: ATTEND Nurse Practitioner Family
DX: Z12.2 Encounter for screening for malignant neoplasm of respiratory organs (principal); J44.9 Chronic obstructive pulmonary disease, unspecified; J30.9 Allergic rhinitis, unspecified; F17.210 Nicotine dependence, cigarettes, uncomplicated

== ENCOUNTER → 2020-01-22 | Outpatient (CLI) | payer MEDICARE ==
[~2020-01-22] MED LIST changes: -IBUP-2055 PO; +IBUP-2473 PO; -METO-387 PO; -MONT10TA24 PO; +MONT10TA26 PO; +MTP25TSR PO
--- NOTE | 2020-01-22 11:28 | Diagnostic Imaging Report ---
EXAMINATION: CT Chest without contrast (lung screening). TECHNIQUE: Multiple contiguous axial images were obtained through the chest without the use of intravenous contrast according to lung cancer screening protocol. All CT scans use one or more of the following dose optimizing techniques: automated exposure control, MA and/or KvP adjustment based on a patient size and exam type, or iterative reconstruction. HISTORY: 96 pack year history of smoking. COMPARISON: 01/02/2019. FINDINGS: There is an irregular area of consolidation in the right upper lobe which is bronchocentric and extends to the right hilum. Lungs are severely emphysematous. The area of consolidation measures 2.5 x 2.7 cm. Calcified granuloma is seen in the left lower lobe. No pleural effusion. No pneumothorax. There is no axillary or supraclavicular lymphadenopathy. There is no mediastinal lymphadenopathy. Pacemaker is present. Heart size is normal. There are severe coronary artery calcifications. No pericardial effusion. Aorta is normal in caliber. Limited views of the upper abdomen are unremarkable. There are no suspicious osseous lesions. IMPRESSION: 1. Irregular area of consolidation in right upper lobe which is bronchocentric and most suggestive of an infection. However, a four-week follow-up diagnostic chest CT with contrast is recommended to ensure resolution. LUNG-RADS CATEGORY: 4a MODIFIER: None. Dictated by: Dictated on workstation # [id number]
== END ==
LOC: RAD 11:15
PROVIDERS: ATTEND Nurse Practitioner Family
DX: Z12.2 Encounter for screening for malignant neoplasm of respiratory organs (principal); J44.9 Chronic obstructive pulmonary disease, unspecified; J18.1 Lobar pneumonia, unspecified organism; J30.2 Other seasonal allergic rhinitis; Z87.891 Personal history of nicotine dependence; Z95.0 Presence of cardiac pacemaker

== ENCOUNTER → 2020-03-17 | Outpatient (CLI) | payer MEDICARE ==
[~2020-03-17] MED LIST changes: +CATHETER FLUSH 10 ML SYR IV PRN; +HOLD METFORMIN - RECEIVED CONTRAST 20 ML VIAL IV SCH; +IOHEXOL 350 MG/ML 100 ML (OMNIPAQUE 350) VIAL IV ONE; -MONT10TA26 PO; +MONT10TA97 PO; +NS 100 ML (IVPB) BAG IV ONE
[2020-03-17 10:33] LABS: BUN/CREATININE RATIO 15; CREATININE SERUM 0.84 MG/DL (0.60-1.30); GFR ESTIMATED > 60
--- NOTE | 2020-03-17 11:14 | Diagnostic Imaging Report ---
EXAMINATION: CT Chest with intravenous contrast. TECHNIQUE: Multiple contiguous axial images were obtained through the chest after the uneventful administration of intravenous contrast. All CT scans use one or more of the following dose optimizing techniques: automated exposure control, MA and/or KvP adjustment based on a patient size and exam type, or iterative reconstruction. HISTORY: Pneumonia. COMPARISON: 01/22/2020 FINDINGS: The right upper lobe area of consolidation has not resolved. It appears similar to the prior exam. Lungs are severely emphysematous. No pleural effusion. No pneumothorax. No suspicious nodules. There is no axillary or supraclavicular lymphadenopathy. There is no mediastinal lymphadenopathy. Pacemaker wires are present. Heart size is normal. There are mild coronary artery calcifications. No pericardial effusion. Aorta is normal in caliber. Limited views of the upper abdomen show hepatic steatosis and an endovascular aortic repair. There are no suspicious osseous lesions. IMPRESSION: 1. Right upper lobe, consolidation persists and is concerning for neoplasm given its lack of resolution or change. PET/CT or biopsy is recommended. Lung RADS category is 4X. Dictated by: Dictated on workstation # [id number]
== END ==
LOC: RAD 11:15
PROVIDERS: ATTEND Nurse Practitioner Family
DX: J18.9 Pneumonia, unspecified organism (principal)
CPT/HCPCS: 36415; 71260; 82565; 84520

== ENCOUNTER → 2020-04-01 | Outpatient (CLI) | payer MEDICARE ==
[~2020-04-01] MED LIST changes: -CATHETER FLUSH 10 ML SYR IV PRN; -HOLD METFORMIN - RECEIVED CONTRAST 20 ML VIAL IV SCH; -IOHEXOL 350 MG/ML 100 ML (OMNIPAQUE 350) VIAL IV ONE; -NS 100 ML (IVPB) BAG IV ONE
--- NOTE | 2020-04-01 14:54 | Diagnostic Imaging Report ---
INDICATION: Right upper lobe mass. TECHNIQUE: Serum blood glucose level at the time of injection was 134 mg/dL. Patient was administered 14.3 mCi F-18 FDG intravenously in the right antecubital location and PET imaging was performed from the top of skull to mid thighs. Noncontrast CT was also performed for attenuation correction and anatomic correlation. COMPARISON: Correlation is made with prior chest CT from 03/17/2020. No prior PET studies available for comparison. FINDINGS: There is symmetric activity throughout the brain. Soft tissues of the neck are unremarkable. The irregular density in the right upper lobe does show some mild elevation in activity with SUV max of 4.3. No definite mediastinal or hilar hypermetabolism is identified. Abdomen and pelvis demonstrates physiologic activity throughout the gastrointestinal and genitourinary tract. No suspicious hypermetabolic foci are seen. There is postsurgical changes of abdominal aortic aneurysm repair with stent graft. IMPRESSION: There is some mild hypermetabolism involving the irregular mass involving the right upper lobe. Neoplasm cannot be entirely excluded. An infectious/inflammatory process would be an additional consideration. No definite mediastinal or hilar hypermetabolism is detected. Dictated by: Dictated on workstation # [id number]
== END ==
LOC: RAD 09:45
PROVIDERS: ATTEND Nurse Practitioner Family
DX: R06.00 Dyspnea, unspecified (principal); R91.8 Other nonspecific abnormal finding of lung field
CPT/HCPCS: 78815; A9552

== ENCOUNTER → 2020-05-21 | Outpatient (CLI) | payer MEDICARE ==
[~2020-05-21] MED LIST changes: +CATHETER FLUSH 10 ML SYR IV PRN; +HOLD METFORMIN - RECEIVED CONTRAST 20 ML VIAL IV SCH; +IOHEXOL 350 MG/ML 100 ML (OMNIPAQUE 350) VIAL IV ONE; -LISI-552 PO; +LISI20TA26 PO; +MONT10TA32 PO; -MONT10TA97 PO; +NS 100 ML (IVPB) BAG IV ONE
[2020-05-21 10:18] LABS: BUN/CREATININE RATIO 13; GFR ESTIMATED > 60
--- NOTE | 2020-05-21 15:16 | Diagnostic Imaging Report ---
PROCEDURE: CT angiography of the abdomen with and without contrast. TECHNIQUE: Multiple contiguous axial images were obtained through the abdomen and pelvis after administration of intravenous contrast. 3D MIP reconstructions were made. Auto Exposure Controls were utilized during the CT exam to meet ALARA standards for radiation dose reduction. INDICATION: History of aortic repair. COMPARISON: Metabolic PET CT performed 04/01/2020. FINDINGS: There is an infrarenal aortic stent graft device with the aneurysm measuring 3.8 cm maximal transverse, unchanged. There is no evidence for endoleak. There is either thrombus or a neointimal hyperplasia deep to the graft resulting in about 50% luminal stenosis maximal. The celiac superior mesenteric arteries and their primary branches are all well opacified. There are no findings of end organ ischemia the aorta is bifurcation is patent the bilateral common iliac is patent. The proximal internal and external iliac arteries are nonaneurysmal and patent. Renal arteries are patent bilaterally. There is mild hepatic steatosis, chronic. The spleen, adrenals and pancreas are nonacute. Some pancreatic parenchymal calcifications, chronic, are favored to reflect old inflammatory changes. No evidence for active pancreatitis. No pseudocyst or other acute fluid collection. Partially visualized uterus and adnexa are unremarkable. There is partial visualization of the appendix, air-containing, and it appears normal. There is benign splenic calcified granulomata with no organomegaly. There is what is likely some scarring in the lower pole of the left kidney not appreciably changed from the prior nonenhanced study. The visualized lower thoracic aorta is patent and nonaneurysmal. There are bibasilar changes of centrilobular emphysema, chronic. IMPRESSION: Stable aortic caliber. No endoleak or rupture. No finding of end organ ischemia. No acute appearing abnormality. Dictated by: Dictated on workstation # [id number]
== END ==
LOC: RAD 09:45
PROVIDERS: ATTEND Internal Medicine Cardiovascular Disease
DX: I71.4 Abdominal aortic aneurysm, without rupture (principal)
CPT/HCPCS: 36415; 74175; 82565; 84520

== ENCOUNTER → 2020-07-21 | Outpatient (CLI) | payer MEDICARE ==
[~2020-07-21] MED LIST changes: -CATHETER FLUSH 10 ML SYR IV PRN; -HOLD METFORMIN - RECEIVED CONTRAST 20 ML VIAL IV SCH; -IOHEXOL 350 MG/ML 100 ML (OMNIPAQUE 350) VIAL IV ONE; -NS 100 ML (IVPB) BAG IV ONE
== END ==
LOC: LABNPT 08:10
PROVIDERS: ATTEND Nurse Practitioner Family
DX: R91.8 Other nonspecific abnormal finding of lung field (principal); R05 Cough; Z20.822 Contact with and (suspected) exposure to COVID-19
CPT/HCPCS: 87635

== ENCOUNTER → 2020-07-21 | Outpatient (CLI) | payer MEDICARE ==
[~2020-07-21] VITALS: Ht 170.2 cm; Wt 94.9 kg
== END | disposition home or self-care (01) ==
LOC: PREOP 06:10
PROVIDERS: ATTEND Internal Medicine Critical Care Medicine
DX: Z01.818 Encounter for other preprocedural examination (principal)

== ENCOUNTER 2020-07-23 07:02 | Day surgery (SDC) | payer MEDICARE ==
[~2020-07-23] VITALS: Ht 170.2 cm; Wt 95.0 kg
[2020-07-23] VITALS (9 sets, daily range): BP systolic 134–181; BP diastolic 72–91
[2020-07-23] MEDS ORDERED: LACTATED RINGERS 1,000 ML IV ONE (07:03)
[2020-07-23] MEDS ORDERED: LACTATED RINGERS 1,000 ML IV STA (07:16)
[2020-07-23] MEDS ORDERED: ONDANSETRON 4 MG/2 ML (SDV) Z0FRAN ONE (07:19)
[2020-07-23] MEDS ORDERED: fentaNYL INJ 100 MCG/2 ML AMP ONE (07:19)
[2020-07-23] MEDS ORDERED: proPOfol 200 MG/20 ML (DIPRIVAN) VIAL IV ONE (07:19)
[2020-07-23] MEDS ORDERED: GLYCOPYRROLATE 0.2 MG/ML (ROBINUL) 2 ML VIAL ONE (07:19)
[2020-07-23] MEDS ORDERED: ROCURONIUM 10 MG/ML 5 ML SYRINGE IV ONE (07:19)
[2020-07-23] MEDS ORDERED: NEOSTIGMINE 3 MG/3 ML VIAL ONE (07:20)
[2020-07-23] MEDS ORDERED: ESMOLOL 100 MG/10 ML (BREVIBLOC) VIAL ONE (08:17)
--- NOTE | 2020-07-23 08:40 | Pulmonary Procedures ---
Pulmonary Procedures Date of Procedure Date of Service: July 23, 2020 Bronch Bronchoscopy with bilateral wash, RUL bronchoalveolar lavage (BAL), kiara brushes, and RUL brushes. Preop DX RUL lung mass Postop DX: same Complications: none After informed consent obtained pt was sedated per anesthesia. Bronchoscope was advanced through the ET tube. 1% lidocaine was used to anesthetize kiara, and left/right main stem bronchus. An anatomical tour was undertaken down to the segmental bronchi bilaterally. No endobronchial lesions noted.Bronchoscopy with bilateral wash, RUL bronchoalveolar lavage (BAL), kiara brushes, and RUL brushes were obtained. Pt tolerated procedure well. No complications noted. Stat CXR is pending. FAITH NIEVES DO July 23, 2020 08:40
[2020-07-23] MEDS ORDERED: morphine INJ 10 MG/ML 1ML (SYR OR VIAL) IVP ONE (09:00)
[2020-07-23] MEDS ORDERED: ONDANSETRON 4 MG/2 ML (SDV) Z0FRAN IVP PRN (09:00)
--- NOTE | 2020-07-23 09:04 | Diagnostic Imaging Report ---
INDICATION: Post-bronchoscopy. TIME OF EXAM: 9:02 AM. COMPARISON: Correlation is made with the prior chest from 12/11/2018. FINDINGS: The heart size is normal. There is some ectasia and tortuosity of the descending thoracic aorta. A dual lead left subclavian cardiac pacemaker is in place. The lungs are clear of acute infiltrates. There is no failure. No effusion or pneumothorax is seen. IMPRESSION: No acute cardiopulmonary process is detected. Dictated by: Dictated on workstation # [id number]
--- NOTE | 2020-07-23 09:49 | Diagnostic Imaging Report ---
INDICATION: Fluoroscopy during bronchoscopy. FINDINGS: Fluoroscopy was provided for Dr. Estevez during bronchoscopy. 20 seconds of fluoroscopic time was utilized. Three images were obtained. IMPRESSION: Fluoroscopy during bronchoscopy. Dictated by: Dictated on workstation # [id number]
--- NOTE | 2020-07-23 11:04 | Anesthesia-General Post-Op ---
General Patient Condition Mental Status/LOC: Same as Preop Cardiovascular: Satisfactory Nausea/Vomiting: Absent Respiratory: Satisfactory Pain: Controlled Complications: Absent Post Op Complications Complications None Follow Up Care/Instructions Patient Instructions None needed. Anesthesia/Patient Condition Patient Condition Patient was seen after the procedure and she was doing well, no complaints, stable vital signs, no apparent adverse anesthesia problems. RUDY CONTRERAS DO July 23, 2020 11:04
--- NOTE | 2020-07-29 07:54 | Progress Note ---
Standard Progress Note Progress Notes/Assess & Plan Date Seen by a Provider: July 23, 2020 Time Seen by a Provider: 09:00 Progress/Assessment & Plan Correction to Anesthesia Record: Procedure: Bronchoscopy Please disregard EBUS from procedure line, Dr Estevez elected to not do EBUS scope RUDY CONTRERAS DO July 29, 2020 07:54
== END 2020-07-23 09:55 | disposition home or self-care (01) ==
LOC: ENDO 07:02
PROVIDERS: ATTEND Internal Medicine Critical Care Medicine
DX: R91.8 Other nonspecific abnormal finding of lung field (principal); I10 Essential (primary) hypertension; J44.9 Chronic obstructive pulmonary disease, unspecified; K21.9 Gastro-esophageal reflux disease without esophagitis; E11.9 Type 2 diabetes mellitus without complications; Z79.899 Other long term (current) drug therapy; Z79.51 Long term (current) use of inhaled steroids
CPT/HCPCS: 71045; 76000; 82947; 87015; 87070; 87101; 87116; 87205; 87206; 88112; 88305; 88312

== ENCOUNTER → 2020-08-08 | Outpatient (CLI) | payer MEDICARE ==
[~2020-08-08] MED LIST changes: +HOLD METFORMIN - RECEIVED CONTRAST 20 ML VIAL IV SCH; +IOHEXOL 350 MG/ML 100 ML (OMNIPAQUE 350) VIAL IV ONE; +NS 100 ML (IVPB) BAG IV ONE
[2020-08-08 14:19] LABS: CREATININE SERUM 1.1 MG/DL (0.60-1.30)
--- NOTE | 2020-08-08 20:47 | Diagnostic Imaging Report ---
PROCEDURE: CT chest with contrast only. TECHNIQUE: Multiple contiguous axial images were obtained through the chest after administration of intravenous contrast. Auto Exposure Controls were utilized during the CT exam to meet ALARA standards for radiation dose reduction. DATE: August 08, 2020. COMPARISON: CT chest March 17, 2020. INDICATION: 70-year-old female, shortness of breath. FINDINGS: There is mild scarring in the right lung apex. There is multilobar emphysema. There is a calcified left lower lobe granuloma on axial image 81. There is no identified noncalcified pulmonary nodule. There is no lung mass. There is no otherwise noted focal airspace consolidation. There is no pneumothorax. There is no pleural effusion. The central airways are patent. There is no identified pulmonary embolus. The heart is not enlarged. There is no pericardial effusion. There is no identified abnormally enlarged noncalcified mediastinal, hilar or axillary lymph node which meets CT size criteria for adenopathy. There is diffuse fatty infiltration of the liver. There are pancreatic calcifications compatible with chronic pancreatitis without evidence of acute pancreatitis. Splenic calcifications are compatible with prior granulomatous disease. There is an infrarenal abdominal aortic stent graft partially imaged. There is no identified acute bony abnormality. There are mild degenerative changes of the spine. IMPRESSION: CT chest: 1. No identified pulmonary embolus or other acute cardiopulmonary abnormality. 2. Findings of emphysema with scarring in the right upper lobe. 3. Sequela of prior granulomatous disease. 4. Diffuse fatty infiltration of the liver. 5. Findings consistent with chronic pancreatitis without evidence of acute pancreatitis. Dictated on workstation # [id number]
== END ==
LOC: RAD 14:45
PROVIDERS: ATTEND Nurse Practitioner Family
DX: J43.9 Emphysema, unspecified (principal); K76.0 Fatty (change of) liver, not elsewhere classified; D71 Functional disorders of polymorphonuclear neutrophils
CPT/HCPCS: 36415; 71260; 82565; 84520

== ENCOUNTER → 2020-08-25 | Outpatient (CLI) | payer MEDICARE ==
[~2020-08-25] MED LIST changes: -HOLD METFORMIN - RECEIVED CONTRAST 20 ML VIAL IV SCH; -IOHEXOL 350 MG/ML 100 ML (OMNIPAQUE 350) VIAL IV ONE; -NS 100 ML (IVPB) BAG IV ONE
[2020-08-25 12:26] LABS: BASOPHILS # (AUTO) 0.1 10^3/uL (0.0-0.1); BASOPHILS % (AUTO) 1 % (0-10); EOSINOPHILS # (AUTO) 0.2 10^3/uL (0.0-0.3); EOSINOPHILS % (AUTO) 3 % (0-10); HEMATOCRIT 46 % (35-52); HEMOGLOBIN 15.2 g/dL (11.5-16.0); LYMPHOCYTES # (AUTO) 1.9 10^3/uL (1.0-4.0); LYMPHOCYTES % (AUTO) 22 % (12-44); MEAN CORPUSCULAR HEMOGLOBIN 31 pg (25-34); MEAN CORPUSCULAR HGB CONC 33 g/dL (32-36); MEAN CORPUSCULAR VOLUME 94 fL (80-99); MEAN PLATELET VOLUME 9.6 fL (9.0-12.2); MONOCYTES # (AUTO) 0.8 10^3/uL (0.0-1.0); MONOCYTES % (AUTO) 9 % (0-12); NEUTROPHILS # (AUTO) 5.8 10^3/uL (1.8-7.8); NEUTROPHILS % (AUTO) 65 % (42-75); PLATELET COUNT 219 10^3/uL (130-400); WHITE BLOOD COUNT 8.8 10^3/uL (4.3-11.0)
[2020-08-25 12:37] LABS: BASOPHILS % (MANUAL) 1 %; EOSINOPHILS % (MANUAL) 3 %; LYMPHOCYTES % (MANUAL) 23 %; MONOCYTES % (MANUAL) 8 %; NEUTROPHILS % (MANUAL) 65 %; RBC MORPH NORMAL
--- NOTE | 2020-08-25 12:37 | Diagnostic Imaging Report ---
INDICATION: COPD, COMPARISON: 07/23/2020 FINDINGS: Frontal and lateral views of the chest demonstrate normal heart size and pulmonary vascularity. The lungs are clear. There are no signs of infiltrate, pleural effusions or pneumothoraces. The visualized osseous structures show no acute abnormalities. Left-sided AICD is noted. IMPRESSION: 1. No acute process. No signs of infiltrates, effusions or pneumothoraces. Dictated by: Dictated on workstation # [id number]
== END ==
LOC: RAD 11:57
PROVIDERS: ATTEND Nurse Practitioner Family
DX: J44.9 Chronic obstructive pulmonary disease, unspecified (principal)
CPT/HCPCS: 36415; 71046; 85007; 85027

== ENCOUNTER → 2020-11-05 | Outpatient (CLI) | payer MEDICARE ==
[~2020-11-05] MED LIST changes: +CATHETER FLUSH 10 ML SYR IV PRN; +HOLD METFORMIN - RECEIVED CONTRAST 20 ML VIAL IV SCH; +IOHEXOL 350 MG/ML 100 ML (OMNIPAQUE 350) VIAL IV ONE; +NS 100 ML (IVPB) BAG IV ONE
[2020-11-05 13:15] LABS: CREATININE SERUM 1.03 MG/DL (0.60-1.30)
--- NOTE | 2020-11-05 15:12 | Diagnostic Imaging Report ---
EXAMINATION: CT chest with intravenous contrast. TECHNIQUE: Multiple contiguous axial images were obtained through the chest after the uneventful administration of intravenous contrast. All CT scans use one or more of the following dose optimizing techniques: automated exposure control, MA and/or KvP adjustment based on patient size and exam type or iterative reconstruction. HISTORY: Abnormal lung findings, pacemaker COMPARISON: 08/08/2020 FINDINGS: There is no edema or pneumonia. No pleural effusion. No pneumothorax. There is an unchanged nodular area of scarring in the right upper lobe. Lungs are moderately emphysematous. There is no axillary or supraclavicular lymphadenopathy. There is no mediastinal lymphadenopathy. There are calcified mediastinal lymph nodes. Pacemaker is present with leads in the right atrium and right ventricle. Heart size is normal. There are mild coronary artery calcifications. No pericardial effusion. Aorta is normal in caliber. Limited views of the upper abdomen show partially visualized endovascular abdominal aortic repair. Pancreas is calcified consistent with chronic pancreatitis. There are no suspicious osseus lesions. IMPRESSION: 1. Stable nodular scarring in the right upper lobe. No acute abnormality. Dictated by: Dictated on workstation # [id number]
== END ==
LOC: RAD 12:38
PROVIDERS: ATTEND Nurse Practitioner Family
DX: R91.8 Other nonspecific abnormal finding of lung field (principal); Z95.0 Presence of cardiac pacemaker
CPT/HCPCS: 36415; 71260; 82565; 84520

== ENCOUNTER → 2021-06-04 | Outpatient (CLI) | payer MEDICARE ==
[~2021-06-04] MED LIST changes: -CATHETER FLUSH 10 ML SYR IV PRN; -HOLD METFORMIN - RECEIVED CONTRAST 20 ML VIAL IV SCH; -IOHEXOL 350 MG/ML 100 ML (OMNIPAQUE 350) VIAL IV ONE; +MONT-40 PO; -MONT10TA32 PO; -NS 100 ML (IVPB) BAG IV ONE
== END ==
LOC: CARD 14:00
PROVIDERS: ATTEND Internal Medicine Cardiovascular Disease
DX: I10 Essential (primary) hypertension (principal)
CPT/HCPCS: 93306

== ENCOUNTER → 2021-12-11 | Outpatient (CLI) | payer MEDICARE ==
--- NOTE | 2021-12-11 13:23 | Diagnostic Imaging Report ---
PROCEDURE: US Hepatic (Liver). TECHNIQUE: Multiple real-time grayscale images were obtained over the right upper quadrant in various projections. INDICATION: Elevated liver enzymes. Liver is enlarged at approximately 19 cm. There is diffuse increased echogenicity throughout the liver consistent with hepatic steatosis. The portal vein is patent and shows normal direction of flow. The gallbladder is without stones or sludge. There is no wall thickening or biliary ductal dilatation. Pancreas is largely obscured by bowel gas. Aorta is borderline aneurysmal at 3.0 cm. IVC is patent. Right kidney is without calculi or hydronephrosis. IMPRESSION: 1. Hepatomegaly and hepatic steatosis. 2. No evidence of cholelithiasis or acute cholecystitis. 3. Borderline aneurysmal dilatation of the abdominal aorta. Dictated by: Dictated on workstation # [id number]
== END ==
LOC: RAD 10:00
PROVIDERS: ATTEND Physician Assistant
DX: K76.0 Fatty (change of) liver, not elsewhere classified (principal); R74.01 Elevation of levels of liver transaminase levels
CPT/HCPCS: 76705